=== PATIENT | female | born 1985 | race Caucasian/White ===

== ENCOUNTER 2018-05-01 17:33 | Outpatient (REF) | payer OTHER, SELFPAY ==
--- NOTE | 2018-05-01 16:30 | PAPFT_PTH ---
PATIENT: Real Craven LOC: [facility] U#:[id number] AGE/SX: 33/F ROOM: RE05/01/[address]: Barbra Bragg MD : 1985 BED: DIS: 05/01/2018 SPEC #: [id number] RECD: 05/01/18 18:04 STATUS: ROLANDA RELex #: [id number] MARY: 05/01/18 16:[address]: Barbra Bragg DEPT: [facility] Cytology RECD BY: Urmila Rahman ENTERED: 05/01/18 18:05 SP TYPE: PAPFT OTHR DR: Shahida Arshad APRN Tissues: 1 - CX/ENDOCX FOR PAP SMEARS Procedures: PAP THIN PREP/UVM Screening HPV DNA PROBE Comments: [id number]
== END 2018-05-01 17:53 ==
LOC: LBN 17:33
PROVIDERS: PCP Nurse Practitioner; Visit Provider Obstetrics & Gynecology
DX: Z12.4 Encounter for screening for malignant neoplasm of cervix (principal); Z11.51 Encounter for screening for human papillomavirus (HPV)
CPT/HCPCS: 88142; 87624

== ENCOUNTER 2018-07-29 16:27 | Outpatient (CLI) | payer OTHER, SELFPAY ==
[2018-07-29 16:57] LABS: Abs Immature Grans 0.04 k/cumm (0.0-0.09); Absolute Basophil Count 0.02 k/cumm (0.0-0.2); Absolute Eosinophil Count 0.07 k/cumm (0.0-0.7); Absolute Lymphocyte Count 2.01 k/cumm (1.2-3.4); Absolute Monocyte Count 0.54 k/cumm (0.11-0.7); Absolute Neutrophil Count 6.78 k/cumm (1.2-6.7); Basophils % 0.2; Eosinophils % 0.7; HCT 34.7 % (36.0-46.0); HGB 12.2 g/dL (12.0-15.5); Immature Grans % 0.4; Lymphocytes % 21.2; Mean Corp. HGB Concentration 35.2 g/dL (32.0-36.0); Mean Corpuscular Hemoglobin 30.9 pg (27.0-33.0); Mean Corpuscular Volume 87.8 fL (80-95); Monocytes % 5.7; Neutrophils % 71.8; Platelet Count 224 x1000/uL (130-400); RBC 3.95 m/cumm (4.00-5.20); RBC Distribution Width 12.8 % (11.7-14.6); White Blood Cell Count 9.46 k/cumm (4.4-10.8)
[2018-07-31 10:01] LABS: Hepatitis B Surface Ag Negative (NEGAT)
[2018-07-31 10:13] LABS: HIV-1/2 Ag & Ab Screen Negative (NEGAT)
[2018-07-31 12:13] LABS: Rubella IgG Ab (UVM) Positive; Syphilis Serology (RPR) Negative (Negative); Varicella IgG Antibody Positive
[2018-07-31 15:23] LABS: Hepatitis C Ab w Rflx HCV PCR Negative (NEGAT)
== END 2018-07-29 16:47 ==
PROVIDERS: PCP Nurse Practitioner; Visit Provider Advanced Practice Midwife
DX: Z34.91 Encounter for supervision of normal pregnancy, unspecified, first trimester (principal); Z11.3 Encounter for screening for infections with a predominantly sexual mode of transmission; Z11.4 Encounter for screening for human immunodeficiency virus [HIV]; Z01.84 Encounter for antibody response examination; Z11.59 Encounter for screening for other viral diseases
CPT/HCPCS: 36415; 80055; 86787; 86803; 86850; 86900; 86901; 87340; 87389; 86592; 86762

== ENCOUNTER 2018-07-29 16:45 | Outpatient (REF) | payer OTHER, SELFPAY ==
[2018-07-29 17:59] LABS: *AMPHETAMINES SCREEN URINE Negative (Negative); *BARBITURATES SCREEN URINE Negative (Negative); *BENZODIAZEPINES SCREEN URINE Negative (Negative); Cannabinoids THC Negative (Negative); Cocaine Screen,Urine Negative (Negative); METHADONE URINE SCREEN Negative (Negative); OPIATES URINE SCREEN Negative (Negative)
[2018-07-29 18:06] LABS: Tricyclic Antidepressants Negative (Negative)
[2018-07-31 13:02] LABS: Chlamydia Result Negative; GC Result Negative; Specimen Description CERVIX
[2018-08-04 15:25] LABS: Buprenorphine Negative; Norbuprenorphine Negative
== END 2018-07-29 17:05 ==
LOC: LBN 16:45
PROVIDERS: PCP Nurse Practitioner; Visit Provider Advanced Practice Midwife
DX: Z34.91 Encounter for supervision of normal pregnancy, unspecified, first trimester (principal); Z11.3 Encounter for screening for infections with a predominantly sexual mode of transmission
CPT/HCPCS: 80307; 87491; 87591; 87086

== ENCOUNTER 2018-08-19 14:17 | Outpatient (CLI) | payer OTHER, SELFPAY ==
[2018-08-19 14:29] LABS: Kit/Specimen SENT
== END 2018-08-19 14:37 ==
PROVIDERS: PCP Nurse Practitioner; Visit Provider Advanced Practice Midwife
DX: Z34.91 Encounter for supervision of normal pregnancy, unspecified, first trimester (principal)
CPT/HCPCS: 36415

== ENCOUNTER 2018-09-23 14:20 | Outpatient (CLI) | payer OTHER, SELFPAY ==
[2018-09-25 15:38] LABS: AFP 75.4 ng/mL; Cigarette smoking status non-smoker; GA used in risk estimate Scan estimate; IVF Pregnancy No; Initial or repeat testing Initial testing; Insulin dependent diabetes No; Maternal Weight 130 lbs; Number of Fetuses 1; Physician Phone Number 802-748-7300; Prev Pregnancy w/NTD No; RECOMMENDED FOLLOW UP None.; Results Summary Normal risk
== END 2018-09-23 14:40 ==
PROVIDERS: PCP Internal Medicine; Visit Provider Advanced Practice Midwife
DX: Z34.91 Encounter for supervision of normal pregnancy, unspecified, first trimester (principal); Z36.89 Encounter for other specified antenatal screening
CPT/HCPCS: 36415; 82105

== ENCOUNTER 2018-10-14 01:06 | Outpatient (CLI) | payer OTHER, SELFPAY ==
--- NOTE | 2018-10-14 14:46 | DI.US_ITS ---
Many abnormalities cannot be diagnosed. A normal exam does not exclude a congenital anomaly. Radiology No. LMP: 06/07/18 Exam Date: 10/14/18 [facility] wks days on EDC ([facility]) 03/14/19 Confirmed: HISTORY: SURVEY, Z34.90 PREDICTED GESTATIONAL AGE NUMBER 18.3 weeks with a range of 17.3 week to 19.3 weeks. 1 Determined by_X__1STUS___LMP___HISTORY Info. pertaining to fetus # PLACENTA PRESENTATION Grade 0-1 Cephalic___ Anterior___Posterior__X_ Breech____ Right Left__X Transverse(head right___ Fundal___Low-lying___Previa___ Transverse(head left___ Varying__X____ BIOMETRY AMNIOTIC FLUID BPD: 45 mm 19.5 weeks Normal HC: 162 mm 19 weeks AC: 132 mm 18.5 weeks FL: 28 mm 18.5 weeks AMNIOTIC FLUID INDEX >26 WK CRL: mm weeks Cisterna Magna: 3.5 mm CI: 86 RUQ: LUQ Cerebellum: 1.80 cm EFW: 256 grams 66 th Percentile RLQ: LLQ Total: cms Composite AGE= 19 wks EDC by US____03/10/19 BIOPHYSICAL PROFILE ANATOMY IDENTIFIED SCORE 0/2 Heart: 4-Chamber_X__Rate:BPM___145__ LVOT: X__ RVOT:___X Amniotic Fluid(>2cms)____ Stomach:____X___ Kidneys:____X___ Respirations (>30 secs) Bladder: X__ Post. Fossa: X____ Body Flex/Extension 3 vessel cord:____X___Ventricles: X____ cord insertion:___X__ Lips:__X__ Extremity Flex/Extension spinal morphology: X___Nose:X Total Score= Palate:__X NS=not seen Please see the OB ultrasound for specific details.
== END 2018-10-14 01:26 ==
PROVIDERS: PCP Internal Medicine; Visit Provider Advanced Practice Midwife
DX: Z34.92 Encounter for supervision of normal pregnancy, unspecified, second trimester (principal)
CPT/HCPCS: 76805

== ENCOUNTER 2018-10-23 16:42 | Outpatient (REF) | payer OTHER, SELFPAY | END 2018-10-23 17:02 | LOC: LBN 16:42 | PROVIDERS: PCP Internal Medicine; Visit Provider Advanced Practice Midwife | DX: N89.8 Other specified noninflammatory disorders of vagina (principal) | CPT/HCPCS: 87480; 87510; 87660 ==

== ENCOUNTER 2018-10-26 11:26 | Outpatient (CLI) | payer OTHER, SELFPAY ==
--- NOTE | 2018-10-26 11:15 | DI.US_ITS ---
SYMPTOMS/DIAGNOSIS: CERVICAL LENGTH CHECK, INTERMITTENT CONTRACTIONS OVER THE WEEKEND LIMITED OBSTETRICAL ULTRASOUND: Many abnormalities cannot be diagnosed. A normal exam does not exclude a congenital anomaly. Radiology No. [id number] LMP: Exam Date: 10/26/18 [facility] wks days on EDC ([facility]) Confirmed: HISTORY: PREDICTED GESTATIONAL AGE NUMBER 20+1 weeks with a range of week to weeks. 1 Determined by___1STUS___LMP___HISTORY PLACENTA PRESENTATION Grade I Cephalic_X__ Anterior___Posterior_X__ Breech____ Right Left Transverse(head right___ Fundal___Low-lying___Previa___ Transverse(head left___ Varying BIOMETRY AMNIOTIC FLUID BPD: mm weeks Normal HC: mm weeks Oligo Polyhydramnios AC: mm weeks FL: mm weeks AMNIOTIC FLUID INDEX >26 WK CRL: mm weeks Cisterna Magna: mm CI: RUQ: LUQ Cerebellum: cm EFW: grams Percentile RLQ: LLQ Total: cms Composite AGE= wks EDC by US BIOPHYSICAL PROFILE ANATOMY IDENTIFIED SCORE 0/2 Heart: 4-Chamber___Rate:BPM 158 LVOT: RVOT: Amniotic Fluid(>2cms)____ Stomach: Kidneys: Respirations (>30 secs) Bladder: Post. Fossa: Body Flex/Extension 3 vessel cord: Ventricles: cord insertion: Lips:____ Extremity Flex/Extension spinal morphology: Nose: Total Score= Palate: NS=not seen COMMENTS: Sonographic evaluation of the cervical length was performed. There is a single intrauterine gestation. The fetus is in the cephalic presentation. heart rate is 158 beats per minute. anatomic evaluation and dating were not performed at this examination. The placenta is posterior without evidence of previa. The cervical length measures 4.3-4.4 cm. IMPRESSION: Cervical length of 4.3-4.4 cm.
== END 2018-10-26 11:46 ==
PROVIDERS: PCP Internal Medicine; Visit Provider Advanced Practice Midwife
DX: O47.02 False labor before 37 completed weeks of gestation, second trimester (principal); Z36.89 Encounter for other specified antenatal screening
CPT/HCPCS: 76815

== ENCOUNTER 2018-11-06 15:56 | Outpatient (REF) | payer OTHER, SELFPAY | END 2018-11-06 16:16 | LOC: LBN 15:56 | PROVIDERS: PCP Internal Medicine; Visit Provider Advanced Practice Midwife | DX: R10.9 Unspecified abdominal pain (principal) | CPT/HCPCS: 87086 ==

== ENCOUNTER 2018-12-02 18:55 | Outpatient (REF) | payer OTHER, SELFPAY | END 2018-12-02 19:15 | LOC: LBN 18:55 | PROVIDERS: Visit Provider Advanced Practice Midwife | DX: Z34.92 Encounter for supervision of normal pregnancy, unspecified, second trimester (principal) | CPT/HCPCS: 87086 ==

== ENCOUNTER 2018-12-03 15:01 | Outpatient (REF) | payer OTHER, SELFPAY ==
[2018-12-03 15:53] LABS: Fetal Fibronectin Negative (Negative)
== END 2018-12-03 15:21 ==
LOC: LBN 15:01
PROVIDERS: Visit Provider Advanced Practice Midwife
DX: Z34.92 Encounter for supervision of normal pregnancy, unspecified, second trimester (principal); Z36.89 Encounter for other specified antenatal screening
CPT/HCPCS: 82731

== ENCOUNTER 2018-12-04 07:55 | Outpatient (CLI) | payer OTHER, SELFPAY ==
--- NOTE | 2018-12-04 08:53 | DI.US_ITS ---
Predicted Gestational Age: Indication/History: INCREASED UTERINE IRRITABILITY 25.5 Wks Range: to Prior US done on: 10/26/18 Determined by: First US LMP History EDC by prior US: For multiple gestations: Baby PLACENTA: Grade: I Location: Anterior Posterior PRESENTATION: RT LT LOW LYING PREVIA Cephalic X Trans (Head RT LT ) Varied Breech BIOMETRY: Anatomy Identified: BPD: mm wks 4 chamber Heart Heart Rate 139 BPM HC: mm wks LVOT Post Fossa AC: mm wks RVOT Ventricles FL: mm wks Stomach Nose Bladder Lips Cisterna Magna: mm CI: Kidneys Palate Cerebellum: mm 3 vessel cord Spine EFW: grms % Cord Insertion NS= not seen Composite Age (US) wks Many abnormalities cannot be diagnosed. A normal exam does not exclude congenital abnormality. EDC by US Amniotic Fluid Index: Normal COMMENTS: RUQ: LUQ: RLQ: LLQ: Total: cm Biophysical Profile: Score 0/2 ZACH (>2cm) Respirations (>30 sec) Body flexion/extension Extremity flexion/extension TOTAL SCORE Comparison is made with 10/26/18. The fetus is in cephalic position. The placenta is posterior. The cervical length measures 4.6 cm. The internal os is closed. IMPRESSION: Cervical length measures 4.6 cm.
== END 2018-12-04 08:15 ==
PROVIDERS: Visit Provider Advanced Practice Midwife
DX: Z34.92 Encounter for supervision of normal pregnancy, unspecified, second trimester (principal); O26.892 Other specified pregnancy related conditions, second trimester
CPT/HCPCS: 76815

== ENCOUNTER 2018-12-23 08:09 | Outpatient (CLI) | payer OTHER, SELFPAY ==
[2018-12-23 15:09] LABS: HCT 34.3 % (36.0-46.0); HGB 11.8 g/dL (12.0-15.5); Mean Corp. HGB Concentration 34.4 g/dL (32.0-36.0); Mean Corpuscular Hemoglobin 30.6 pg (27.0-33.0); Mean Corpuscular Volume 88.9 fL (80-95); Mean Platelet Volume 8.9 fL (8.0-11.0); Platelet Count 212 x1000/uL (130-400); RBC 3.86 m/cumm (4.00-5.20); RBC Distribution Width 13.2 % (11.7-14.6)
[2018-12-23 15:12] LABS: Glucose,1 Hr (Glucola) 150 mg/dL (80-140)
== END 2018-12-23 08:29 ==
PROVIDERS: Visit Provider Advanced Practice Midwife
DX: Z34.92 Encounter for supervision of normal pregnancy, unspecified, second trimester (principal)
CPT/HCPCS: 36415; 82950; 85027

== ENCOUNTER 2018-12-31 06:43 | Outpatient (CLI) | payer OTHER, SELFPAY ==
[2018-12-31 09:02] LABS: Glucose 1 Hour 106 mg/dL
[2018-12-31 11:12] LABS: Glucose 3 Hour 80 mg/dL
== END 2018-12-31 07:03 ==
PROVIDERS: PCP Internal Medicine; Visit Provider Advanced Practice Midwife
DX: R73.09 Other abnormal glucose (principal)
CPT/HCPCS: 36410; 82951

== ENCOUNTER 2019-02-17 17:23 | Outpatient (REF) | payer OTHER, SELFPAY ==
[2019-02-17 17:53] LABS: *AMPHETAMINES SCREEN URINE Negative (Negative); *BARBITURATES SCREEN URINE Negative (Negative); *BENZODIAZEPINES SCREEN URINE Negative (Negative); Cannabinoids THC Negative (Negative); Cocaine Screen,Urine Negative (Negative); METHADONE URINE SCREEN Negative (Negative); OPIATES URINE SCREEN Negative (Negative)
[2019-02-17 18:17] LABS: Tricyclic Antidepressants Negative (Negative)
[2019-02-26 14:10] LABS: Buprenorphine Negative
== END 2019-02-17 17:43 ==
LOC: LBN 17:23
PROVIDERS: PCP Internal Medicine; Visit Provider Advanced Practice Midwife
DX: Z34.93 Encounter for supervision of normal pregnancy, unspecified, third trimester (principal); Z36.85 Encounter for antenatal screening for Streptococcus B
CPT/HCPCS: 80307; 87081

== ENCOUNTER 2019-02-25 07:32 | Outpatient (CLI) | payer OTHER, SELFPAY ==
--- NOTE | 2019-02-25 08:48 | DI.US_ITS ---
SYMPTOM/DIAGNOSIS: SIZE<DATES AT 37 WM Z34,90 OB ULTRASOUND: 02/25/19 OB ultrasound was performed utilizing 3rd trimester protocol. biometry is consistent with gestational age of 37 weeks 1 day and EDC of 03/17/19 Estimated weight is 3038 grams which is at the 39th percentile for predicted gestational age. The placenta is posterior with no evidence of placenta previa. Amniotic fluid index is 15 and visually there is a normal quantity of amniotic fluid. Fetus is in cephalic presentation. cardiac activity observed at a rate of 147 BPM. Predicted Gestational Age: Indication/History: 37 +4 Wks Range: 36 +4 to 38 +4 Prior US done on: Determined by: First US XX LMP History EDC by prior US: 03/14/19 For multiple gestations: Baby PLACENTA: Grade: II Location: Anterior Posterior XX PRESENTATION: XX LT LOW LYING PREVIA Cephalic XX Trans (Head RT LT ) Varied Breech BIOMETRY: Anatomy Identified: BPD: 92 mm 37 +3 wks 4 chamber Heart Heart Rate 147 BPM HC: 331 mm 37 +4 wks LVOT Post Fossa AC: 325 mm 36 +3 wks RVOT Ventricles FL: 72 mm 37 wks Stomach Nose Bladder Lips Cisterna Magna: mm CI: 85 Kidneys Palate Cerebellum: mm 3 vessel cord Spine EFW: 3038 grms 39 % Cord Insertion NS= not seen Composite Age (US) 37 +1 wks Many abnormalities cannot be diagnosed. A normal exam does not exclude congenital abnormality. EDC by US 03/17/19 Amniotic Fluid Index: Normal COMMENTS: RUQ: 6.5 LUQ: 2.9 RLQ: 3.5 LLQ: 2.2 Total: 15.2 cm Biophysical Profile: Score 0/2 ZACH (>2cm) Respirations (>30 sec) Body flexion/extension Extremity flexion/extension TOTAL SCORE
== END 2019-02-25 07:52 ==
PROVIDERS: PCP Internal Medicine; Visit Provider Advanced Practice Midwife
DX: O26.843 Uterine size-date discrepancy, third trimester (principal)
CPT/HCPCS: 76816

== ENCOUNTER 2019-03-19 14:43 | Outpatient (CLI) | payer OTHER, SELFPAY | END 2019-03-19 15:03 | PROVIDERS: PCP Internal Medicine; Visit Provider Advanced Practice Midwife | DX: O48.0 Post-term pregnancy (principal) | CPT/HCPCS: 59025 ==

== ENCOUNTER 2019-03-22 07:56 | Outpatient (CLI) | payer OTHER, SELFPAY ==
[2019-03-22 12:33] LABS: HCT 34.4 % (36.0-46.0); HGB 11.6 g/dL (12.0-15.5); Mean Corp. HGB Concentration 33.7 g/dL (32.0-36.0); Mean Corpuscular Hemoglobin 28.7 pg (27.0-33.0); Mean Corpuscular Volume 85.1 fL (80-95); Mean Platelet Volume 9.7 fL (8.0-11.0); Platelet Count 224 x1000/uL (130-400); RBC 4.04 m/cumm (4.00-5.20); RBC Distribution Width 12.8 % (11.7-14.6); White Blood Cell Count 8.85 k/cumm (4.4-10.8)
[2019-03-22 12:48] LABS: COMMENT (LAB VIEW ONLY) 14.07 mg/dL; PROTEIN < 6.0 mg/dL
[2019-03-22 13:35] LABS: ALT 22 U/L (14-59); AST 17 U/L (15-37); Albumin 2.7 g/dL (3.4-5.0); Alkaline Phosphatase 162 U/L (46-116); Anion Gap 9.7 mmol/L (3-11); BUN 11 mg/dL (7-18); Bilirubin, Total 0.6 mg/dL (0.2-1.0); CO2 23.3 mmol/L (21.0-32.0); CREATININE 0.61 mg/dL (0.55-1.02); Calcium 8.1 mg/dL (8.5-10.1); Chloride 106 mmol/L (98-107); Glucose 76 mg/dL (70-100); Potassium 4.2 mmol/L (3.5-5.1); Sodium 139 mmol/L (136-145); Total Protein 5.9 g/dL (6.4-8.2); Uric Acid 4.5 mg/dL (2.6-6.0)
== END 2019-03-22 08:16 ==
PROVIDERS: PCP Internal Medicine; Visit Provider Advanced Practice Midwife
DX: O48.0 Post-term pregnancy; O26.893 Other specified pregnancy related conditions, third trimester; R03.0 Elevated blood-pressure reading, without diagnosis of hypertension; Z3A.41 41 weeks gestation of pregnancy
CPT/HCPCS: 36415; 80053; 85027; 59025; 82565; 84156; 84550

== ENCOUNTER 2019-03-24 16:51 | Inpatient (IN) | payer OTHER, SELFPAY ==
[2019-03-24 17:35] LABS: HCT 33.3 % (36.0-46.0); HGB 11.1 g/dL (12.0-15.5); Mean Corp. HGB Concentration 33.3 g/dL (32.0-36.0); Mean Corpuscular Hemoglobin 28.2 pg (27.0-33.0); Mean Corpuscular Volume 84.7 fL (80-95); Mean Platelet Volume 9.7 fL (8.0-11.0); Platelet Count 218 x1000/uL (130-400); RBC 3.93 m/cumm (4.00-5.20); RBC Distribution Width 12.7 % (11.7-14.6); White Blood Cell Count 8.71 k/cumm (4.4-10.8)
[2019-03-24] MEDS: miSOPROStol 25 MCG TAB PO ×3 (18:33→22:14)
[2019-03-25] MEDS: miSOPROStol 50 MCG TAB PO (08:02)
[2019-03-25] MEDS: Normal Saline Flush 10 ML SYR IVP ×2 (12:38→13:17)
[2019-03-25] MEDS: Lactated Ringers 1,000 ML 80 ML IV (13:15)
[2019-03-25] MEDS: Ondansetron 4 MG/2 ML VIAL IVP (17:01)
[2019-03-25] MEDS: FentaNYL/ROPIvacaine 2 mcg/ml and 0.1% 200 ML CADD Cassette EP ×2 (17:01→17:30)
[2019-03-25] MEDS: Lactated Ringers 1,000 ML 125 ML IV (17:46)
[2019-03-25] MEDS: Acetaminophen 325 MG TAB 650 MG PO (22:27)
[2019-03-25] MEDS: Ibuprofen 600 MG TAB PO (22:27)
[2019-03-25] MEDS: Hamamelis Leaf/Glycerin 100 EACH BOX PR (22:29)
[2019-03-26] MEDS: Ibuprofen 600 MG TAB PO ×3 (04:15→18:16)
[2019-03-26] MEDS: Acetaminophen 325 MG TAB 650 MG PO ×3 (04:15→18:15)
[2019-03-26 07:12] LABS: HCT 29.5 % (36.0-46.0); HGB 9.8 g/dL (12.0-15.5); Mean Corp. HGB Concentration 33.2 g/dL (32.0-36.0); Mean Corpuscular Hemoglobin 28.5 pg (27.0-33.0); Mean Corpuscular Volume 85.8 fL (80-95); Mean Platelet Volume 9.7 fL (8.0-11.0); Platelet Count 212 x1000/uL (130-400); RBC 3.44 m/cumm (4.00-5.20); RBC Distribution Width 12.8 % (11.7-14.6); White Blood Cell Count 15.57 k/cumm (4.4-10.8)
[2019-03-26] MEDS: Ondansetron 4 MG/2 ML VIAL 8 MG IVP (07:56)
[2019-03-26] MEDS: Normal Saline Flush 10 ML SYR IVP ×2 (07:57→19:08)
[2019-03-26] MEDS: Docusate Sodium 100 MG CAP PO (11:48)
[2019-03-26] MEDS: Ondansetron 4 MG/2 ML VIAL IVP (19:08)
[2019-03-27 08:21] LABS: Abs Immature Grans 0.04 k/cumm (0.0-0.09); Absolute Basophil Count 0.01 k/cumm (0.0-0.2); Absolute Eosinophil Count 0.06 k/cumm (0.0-0.7); Absolute Monocyte Count 0.39 k/cumm (0.11-0.7); Absolute Neutrophil Count 10.78 k/cumm (1.2-6.7); Basophils % 0.1; Eosinophils % 0.5; HCT 28.1 % (36.0-46.0); HGB 9.2 g/dL (12.0-15.5); Immature Grans % 0.3; Lymphocytes % 8.4; Mean Corp. HGB Concentration 32.7 g/dL (32.0-36.0); Mean Corpuscular Hemoglobin 28.4 pg (27.0-33.0); Mean Corpuscular Volume 86.7 fL (80-95); Mean Platelet Volume 8.6 fL (8.0-11.0); Monocytes % 3.2; Neutrophils % 87.5; Platelet Count 207 x1000/uL (130-400); RBC 3.24 m/cumm (4.00-5.20); White Blood Cell Count 12.32 k/cumm (4.4-10.8)
[2019-03-27 08:23] LABS: Absolute Lymphocyte Count 1.03 k/cumm (1.2-3.4)
[2019-03-27] MEDS: Acetaminophen 325 MG TAB 650 MG PO ×2 (10:15→15:00)
[2019-03-27] MEDS: IRON SUCROSE COMPLEX 200 MG in Normal Saline 100 ML 110 MG IVPB (10:40)
[2019-03-27] MEDS: Ibuprofen 600 MG TAB PO (15:00)
== END 2019-03-27 15:00 | disposition home or self-care (01) | DRG 807 ==
PROVIDERS: Advanced Practice Midwife; Admitting Provider Advanced Practice Midwife; PCP Internal Medicine; Visit Provider Advanced Practice Midwife
DX: O48.0 Post-term pregnancy (principal); Z37.0 Single live birth; Z3A.41 41 weeks gestation of pregnancy; O77.0 Labor and delivery complicated by meconium in amniotic fluid; O76 Abnormality in fetal heart rate and rhythm complicating labor and delivery; O90.81 Anemia of the puerperium; D64.9 Anemia, unspecified; O99.344 Other mental disorders complicating childbirth; F41.1 Generalized anxiety disorder; O90.89 Other complications of the puerperium, not elsewhere classified; R11.0 Nausea
CPT/HCPCS: 36415; 85027; 86850; 86900; 86901; 85025; J1756; J2405; J3490

== ENCOUNTER 2019-05-12 16:55 | Outpatient (REF) | payer OTHER, SELFPAY ==
[2019-05-13 12:52] LABS: Chlamydia Result Negative (Negative); GC Result Negative (Negative); Specimen Description CERVIX
== END 2019-05-12 17:15 ==
LOC: LBN 16:55
PROVIDERS: PCP Internal Medicine; Visit Provider Advanced Practice Midwife
DX: Z39.2 Encounter for routine postpartum follow-up (principal); Z11.3 Encounter for screening for infections with a predominantly sexual mode of transmission
CPT/HCPCS: 87491; 87591

== ENCOUNTER 2019-08-12 22:28 | Outpatient (REF) | payer OTHER, SELFPAY ==
[2019-08-12 18:47] LABS: Abs Immature Grans 0.03 k/cumm (0.0-0.09); Absolute Basophil Count 0.02 k/cumm (0.0-0.2); Absolute Eosinophil Count 0.08 k/cumm (0.0-0.7); Absolute Lymphocyte Count 1.38 k/cumm (1.2-3.4); Absolute Monocyte Count 0.68 k/cumm (0.11-0.7); Absolute Neutrophil Count 13.37 k/cumm (1.2-6.7); Basophils % 0.1; Eosinophils % 0.5; HCT 40.9 % (36.0-46.0); HGB 14.2 g/dL (12.0-15.5); Immature Grans % 0.2 %; Lymphocytes % 8.9; Mean Corp. HGB Concentration 34.7 g/dL (32.0-36.0); Mean Corpuscular Hemoglobin 29.4 pg (27.0-33.0); Mean Corpuscular Volume 84.7 fL (80-95); Mean Platelet Volume 9.3 fL (8.0-11.0); Monocytes % 4.4; Neutrophils % 85.9; Platelet Count 278 x1000/uL (130-400); RBC 4.83 m/cumm (4.00-5.20); RBC Distribution Width 13.7 % (11.7-14.6); White Blood Cell Count 15.56 k/cumm (4.4-10.8)
[2019-08-12 19:02] LABS: TSH (W/Ref FT4) 2.01 uIU/mL (0.36-3.74)
[2019-08-12 19:14] LABS: Mono Screening Negative (Negative)
== END 2019-08-12 22:48 ==
LOC: LBN 22:28
PROVIDERS: PCP Internal Medicine; Visit Provider Family Medicine
DX: R53.83 Other fatigue (principal)
CPT/HCPCS: 87449; 84443; 85025; 86308

== ENCOUNTER 2019-09-14 19:30 | Outpatient (REF) | payer OTHER, SELFPAY ==
[2019-09-14 18:47] LABS: Abs Immature Grans 0.01 k/cumm (0.0-0.09); Absolute Basophil Count 0.01 k/cumm (0.0-0.2); Absolute Eosinophil Count 0.11 k/cumm (0.0-0.7); Absolute Lymphocyte Count 1.47 k/cumm (1.2-3.4); Absolute Monocyte Count 0.49 k/cumm (0.11-0.7); Absolute Neutrophil Count 3.03 k/cumm (1.2-6.7); Basophils % 0.2; Eosinophils % 2.1; HCT 38.9 % (36.0-46.0); HGB 13.7 g/dL (12.0-15.5); Immature Grans % 0.2 %; Lymphocytes % 28.7; Mean Corp. HGB Concentration 35.2 g/dL (32.0-36.0); Mean Corpuscular Hemoglobin 30.2 pg (27.0-33.0); Mean Corpuscular Volume 85.9 fL (80-95); Mean Platelet Volume 8.8 fL (8.0-11.0); Monocytes % 9.6; Neutrophils % 59.2; Platelet Count 250 x1000/uL (130-400); RBC 4.53 m/cumm (4.00-5.20); RBC Distribution Width 13.3 % (11.7-14.6); White Blood Cell Count 5.12 k/cumm (4.4-10.8)
[2019-09-14 19:02] LABS: Iron 46 ug/dL (50-170); Total Iron Binding Capacity 302 ug/dL (250-450); Transferrin Sat 15 % (15-50)
[2019-09-14 19:25] LABS: ESR 8 mm/hr (0-20)
[2019-09-14 19:29] LABS: ALT 28 U/L (14-59); AST 16 U/L (15-37); Albumin 3.6 g/dL (3.4-5.0); Alkaline Phosphatase 85 U/L (46-116); Anion Gap 8.8 mmol/L (3-11); BUN 17 mg/dL (7-18); Bilirubin, Total 0.9 mg/dL (0.2-1.0); CO2 27.2 mmol/L (21.0-32.0); CREATININE 0.72 mg/dL (0.55-1.02); Calcium 8.2 mg/dL (8.5-10.1); Chloride 104 mmol/L (98-107); Glucose 85 mg/dL (74-106); Potassium 4.1 mmol/L (3.5-5.1); Sodium 140 mmol/L (136-145); Total Protein 6.4 g/dL (6.4-8.2); Vitamin B12 675 pg/mL (193-986)
== END 2019-09-14 19:50 ==
LOC: NCHCN 19:30
PROVIDERS: PCP Internal Medicine; Visit Provider Family Medicine
DX: R53.83 Other fatigue (principal)
CPT/HCPCS: 80053; 85652; 82607; 83540; 83550; 84443; 85025

== ENCOUNTER 2020-07-27 08:56 | Outpatient (REF) | payer OTHER, SELFPAY | END 2020-07-27 09:16 | LOC: LBN 08:56 | PROVIDERS: PCP Internal Medicine; Visit Provider Advanced Practice Midwife | DX: N89.8 Other specified noninflammatory disorders of vagina (principal) | CPT/HCPCS: 87480; 87510; 87660 ==

== ENCOUNTER 2020-11-24 00:35 | Outpatient (RCR) | payer OTHER, SELFPAY ==
--- NOTE | 2020-11-24 08:00 | HOLTER_ITS ---
APPROVED REPORT Conclusion This is a 24-hour monitor ordered for indication of dyspnea. Patient was in normal sinus rhythm for the majority of the recording with an average heart rate of 84 bpm. There are no episodes of ventricular tachycardia nor any episodes of supraventricular tachycardia. There were no PVCs and 2 total PACs. There were no episodes of atrial fibrillation, no pauses greater than 3 seconds and no evidence of hi gh degree heart block. There were 4 patient triggered events associated with nausea, dizziness and palpitations none of whic h were associated with arrhythmia.
== END 2020-12-18 23:59 | disposition home or self-care (01) ==
LOC: RT 00:35
PROVIDERS: PCP Internal Medicine; Visit Provider Family Medicine
DX: R06.89 Other abnormalities of breathing (principal); I49.1 Atrial premature depolarization
CPT/HCPCS: 93225; 93226

== ENCOUNTER 2021-01-02 15:03 | Outpatient (REF) | payer OTHER, SELFPAY | END 2021-01-02 15:04 | disposition home or self-care (01) | LOC: LBN 15:03 | PROVIDERS: PCP Internal Medicine; Visit Provider Nurse Practitioner Family | DX: R35.0 Frequency of micturition (principal) | CPT/HCPCS: 87086 ==

== ENCOUNTER 2021-05-14 09:44 | Outpatient (CLI) | payer OTHER, SELFPAY ==
[2021-05-14 12:27] LABS: HCG Quant, Pregnancy 364 mIU/mL (1-3)
== END 2021-05-14 09:45 | disposition home or self-care (01) ==
LOC: LBO 09:44
PROVIDERS: PCP Internal Medicine; Visit Provider Obstetrics & Gynecology Gynecology
DX: O20.0 Threatened abortion (principal)
CPT/HCPCS: 36415; 84702

== ENCOUNTER 2021-05-16 04:38 | Outpatient (CLI) | payer OTHER, SELFPAY ==
[2021-05-16 11:43] LABS: HCG Quant, Pregnancy 276 mIU/mL (1-3)
== END 2021-05-16 04:39 | disposition home or self-care (01) ==
LOC: LBO 04:38
PROVIDERS: PCP Internal Medicine; Visit Provider Obstetrics & Gynecology
DX: O20.0 Threatened abortion (principal)
CPT/HCPCS: 36415; 84702

== ENCOUNTER 2021-05-23 03:29 | Outpatient (CLI) | payer OTHER, SELFPAY ==
[2021-05-23 08:42] LABS: HCG Quant, Pregnancy 96 mIU/mL (1-3)
== END 2021-05-23 03:30 | disposition home or self-care (01) ==
LOC: LBO 03:29
PROVIDERS: PCP Internal Medicine; Visit Provider Obstetrics & Gynecology
DX: O20.0 Threatened abortion (principal)
CPT/HCPCS: 36415; 84702

== ENCOUNTER 2021-05-30 02:31 | Outpatient (CLI) | payer OTHER, SELFPAY ==
[2021-05-30 09:57] LABS: HCG Quant, Pregnancy 5 mIU/mL (1-3)
== END 2021-05-30 02:32 | disposition home or self-care (01) ==
LOC: LBO 02:31
PROVIDERS: PCP Internal Medicine; Visit Provider Obstetrics & Gynecology
DX: O03.9 Complete or unspecified spontaneous abortion without complication (principal)
CPT/HCPCS: 36415; 84702

== ENCOUNTER 2021-09-25 14:36 | Outpatient (CLI) | payer OTHER, SELFPAY | END 2021-09-25 14:37 | disposition home or self-care (01) | LOC: LBO 14:38 | PROVIDERS: PCP Family Medicine; Visit Provider Nurse Practitioner Women's Health | DX: Z34.91 Encounter for supervision of normal pregnancy, unspecified, first trimester (principal); Z3A.01 Less than 8 weeks gestation of pregnancy | CPT/HCPCS: 36415; 84702 ==

== ENCOUNTER 2021-09-27 02:47 | Outpatient (CLI) | payer OTHER, SELFPAY | END 2021-09-27 02:48 | disposition home or self-care (01) | LOC: LBO 02:47 | PROVIDERS: PCP Family Medicine; Visit Provider Nurse Practitioner Women's Health | DX: Z34.91 Encounter for supervision of normal pregnancy, unspecified, first trimester (principal) | CPT/HCPCS: 36415; 84702 ==

== ENCOUNTER 2021-10-30 03:03 | Outpatient (CLI) | payer OTHER, SELFPAY ==
[2021-10-30 12:19] LABS: Kit/Specimen SENT
[2021-10-30 12:23] LABS: Abs Immature Grans 0.07 10^3/uL (0.0-0.06); Absolute Basophil Count 0.04 10^3/uL (0.0-0.2); Absolute Eosinophil Count 0.07 10^3/uL (0.0-0.7); Absolute Lymphocyte Count 1.43 10^3/uL (1.2-3.4); Absolute Neutrophil Count 7.35 10^3/uL (1.2-6.7); Basophils % 0.4; Eosinophils % 0.7; HCT 36.7 % (36.0-46.0); HGB 12.6 g/dL (11.2-15.7); Immature Grans % 0.7; Lymphocytes % 15.3; MCH 30.5 pg (27.0-33.0); MCHC 34.3 % (32.0-36.0); MCV 88.9 fL (80-95); MPV 8.7 fL (8.0-11.0); Monocytes % 4.3; Neutrophils % 78.6; Nucleated RBC 0 %; Platelet Count 215 10^3/uL (130-400); RBC 4.13 10^6/uL (3.93-5.22); RDW 13.2 % (11.7-14.6); RDW-SD 42.7 fL; WBC 9.36 10^3/uL (4.4-10.8)
[2021-10-31 09:36] LABS: Hepatitis B Surface Ag Negative (Negative)
[2021-10-31 10:16] LABS: HIV-1/2 Ag & Ab Screen Negative (Negative)
[2021-10-31 10:35] LABS: Hepatitis C Ab w Rflx HCV PCR Negative (Negative)
[2021-10-31 11:30] LABS: Rubella IgG Ab (UVM) Positive (See Note); Varicella IgG Antibody Positive (See Note)
[2021-10-31 18:38] LABS: Bile Acids, Total 7 mcmol/L (<=10)
[2021-10-31 21:50] LABS: Syphilis IgG w/Reflex Nonreactive (Nonreactive)
== END 2021-10-30 03:04 | disposition home or self-care (01) ==
LOC: LBO 03:03
PROVIDERS: Advanced Practice Midwife; PCP Family Medicine; Visit Provider Advanced Practice Midwife
DX: O09.521 Supervision of elderly multigravida, first trimester; O28.3 Abnormal ultrasonic finding on antenatal screening of mother; Z3A.00 Weeks of gestation of pregnancy not specified
CPT/HCPCS: 86787; 86803; 86850; 86900; 86901; 87340; 87389; 82239; 85025; 86762; 86780

== ENCOUNTER 2021-10-30 14:18 | Outpatient (REF) | payer OTHER, SELFPAY ==
[2021-10-30 18:06] LABS: *AMPHETAMINES SCREEN URINE Negative (Negative); *BARBITURATES SCREEN URINE Negative (Negative); *BENZODIAZEPINES SCREEN URINE Negative (Negative); Cannabinoids THC Negative (Negative); Cocaine Screen,Urine Negative (Negative); METHADONE URINE SCREEN Negative (Negative); OPIATES URINE SCREEN Negative (Negative)
[2021-10-30 18:07] LABS: Tricyclic Antidepressants Negative (Negative)
[2021-11-01 13:53] LABS: Chlamydia Result Negative (Negative); GC Result Negative (Negative)
[2021-11-06 14:05] LABS: Buprenorphine Negative ng/mL (Cutoff: 5.0); Norbuprenorphine Negative ng/mL (Cutoff: 2.5)
== END 2021-10-30 14:19 | disposition home or self-care (01) ==
LOC: LBN 14:18
PROVIDERS: PCP Family Medicine; Visit Provider Advanced Practice Midwife
DX: Z34.91 Encounter for supervision of normal pregnancy, unspecified, first trimester (principal); Z3A.11 11 weeks gestation of pregnancy
CPT/HCPCS: 80307; 87491; 87591; 87086; 87480; 87510; 87660

== ENCOUNTER 2021-11-01 14:22 | Outpatient (CLI) | payer OTHER, SELFPAY ==
[2021-11-01 14:08] LABS: ALT 25 U/L (14-59); AST 14 U/L (15-37); Albumin 3.7 g/dL (3.4-5.0); Alkaline Phosphatase 56 U/L (46-116); Anion Gap 10.2 mmol/L (3-11); BUN 13 mg/dL (7-18); CO2 25.8 mmol/L (21.0-32.0); CREATININE 0.5 mg/dL (0.55-1.02); Calcium 8.7 mg/dL (8.5-10.1); Chloride 104 mmol/L (98-107); Glucose 85 mg/dL (74-106); Potassium 3.8 mmol/L (3.5-5.1); Sodium 140 mmol/L (136-145); Total Protein 6.8 g/dL (6.4-8.2)
== END 2021-11-01 14:23 | disposition home or self-care (01) ==
LOC: LBO 14:23
PROVIDERS: PCP Family Medicine; Visit Provider Advanced Practice Midwife
DX: O99.711 Diseases of the skin and subcutaneous tissue complicating pregnancy, first trimester (principal); L29.8 Other pruritus; Z3A.11 11 weeks gestation of pregnancy
CPT/HCPCS: 80053

== ENCOUNTER 2021-11-14 04:57 | Outpatient (CLI) | payer OTHER, SELFPAY ==
[2021-11-16 15:48] LABS: CMV Ab, IgM Negative (Negative); Toxoplasma Ab, IgG Negative (Negative); Toxoplasma Ab, IgM Negative (Negative); Toxoplasma IgG Value <3 IU/mL
== END 2021-11-14 04:58 | disposition home or self-care (01) ==
LOC: LBO 04:57
PROVIDERS: PCP Family Medicine; Visit Provider Advanced Practice Midwife
DX: O99.511 Diseases of the respiratory system complicating pregnancy, first trimester (principal); J20.8 Acute bronchitis due to other specified organisms; Z3A.13 13 weeks gestation of pregnancy
CPT/HCPCS: 36415; 86644; 86645; 86777; 86778

== ENCOUNTER 2021-11-29 02:02 | Outpatient (CLI) | payer OTHER, SELFPAY ==
[2021-11-30 17:28] LABS: AFP 127.4 ng/mL; Calculated age at EDD 36 years; Cigarette smoking status non-Smoker; GA used in risk estimate Scan estimate; IVF Pregnancy No; Initial or repeat testing Initial testing; Insulin dependent diabetes No; Maternal Weight 128 lbs; Number of Fetuses 1; Physician Phone Number 802-748-7300; Prev Pregnancy w/NTD No
== END 2021-11-29 02:03 | disposition home or self-care (01) ==
LOC: LBO 02:02
PROVIDERS: PCP Family Medicine; Visit Provider Obstetrics & Gynecology
DX: Z34.92 Encounter for supervision of normal pregnancy, unspecified, second trimester (principal); Z3A.15 15 weeks gestation of pregnancy; Z36.89 Encounter for other specified antenatal screening
CPT/HCPCS: 36415; 82105

== ENCOUNTER → 2022-02-20 02:14 | Outpatient (CLI) | payer OTHER, SELFPAY ==
--- NOTE | 2022-02-20 07:45 | DI.US_ITS ---
Exam(s) US OB ZACH WEIGHT EXAM: US OB ZACH WEIGHT CLINICAL HISTORY: growth and ZACH,elevated afp, r77.2. TECHNIQUE: Transabdominal obstetrical ultrasound performed. COMPARISON: No exams were available for comparison FINDINGS:: Number of fetuses: One. position: Vertex. Placental location: Posterior. No evidence of previa. BIOMETRIC DATA: BPD: 70mm = 28+ 0 weeks HC: 245mm = 26+ 5 weeks AC: 244mm = 28+ 5 weeks FL: 51 mm = 27+ 1 weeks EFW: 1147 Gms = 64% Composite Age: 27+ 5 weeks EDC: 17 May 2022 Heart Rate: 138 BPM Amniotic fluid index: 11.5 cm. Amount of fluid is visually within normal limits. IMPRESSION: size and weight are within the expected range. DATA REPOSITORY:
== END ==
PROVIDERS: PCP Family Medicine; Visit Provider Obstetrics & Gynecology
DX: R77.2 Abnormality of alphafetoprotein (principal); Z34.92 Encounter for supervision of normal pregnancy, unspecified, second trimester
CPT/HCPCS: 76816

== ENCOUNTER 2022-02-20 02:59 | Outpatient (CLI) | payer OTHER, SELFPAY ==
[2022-02-20 08:48] LABS: Abs Immature Grans 0.18 10^3/uL (0.0-0.06); Absolute Basophil Count 0.03 10^3/uL (0.0-0.2); Absolute Eosinophil Count 0.05 10^3/uL (0.0-0.7); Absolute Lymphocyte Count 1.01 10^3/uL (1.2-3.4); Absolute Monocyte Count 0.36 10^3/uL (0.1-0.8); Absolute Neutrophil Count 8.12 10^3/uL (1.2-6.7); Basophils % 0.3; Eosinophils % 0.5; HCT 32.5 % (36.0-46.0); HGB 11.1 g/dL (11.2-15.7); Immature Grans % 1.8; Lymphocytes % 10.4; MCH 30.1 pg (27.0-33.0); MCHC 34.2 % (32.0-36.0); MCV 88 fL (80-95); MPV 8.6 fL (8.0-11.0); Monocytes % 3.7; Neutrophils % 83.3; Platelet Count 187 10^3/uL (130-400); RBC 3.69 10^6/uL (3.93-5.22); RDW 12.7 % (11.7-14.6); RDW-SD 40.7 fL; WBC 9.75 10^3/uL (4.4-10.8)
[2022-02-20 09:27] LABS: Glucose,1 Hr (Glucola) 97 mg/dL (80-140)
== END 2022-02-20 03:00 | disposition home or self-care (01) ==
PROVIDERS: PCP Family Medicine; Visit Provider Obstetrics & Gynecology
DX: Z34.92 Encounter for supervision of normal pregnancy, unspecified, second trimester (principal); N89.8 Other specified noninflammatory disorders of vagina
CPT/HCPCS: 36415; 82950; 85025; 87480; 87510; 87660

== ENCOUNTER → 2022-03-20 02:13 | Outpatient (CLI) | payer OTHER, SELFPAY ==
--- NOTE | 2022-03-20 07:00 | DI.US_ITS ---
Exam(s) US OB ZACH WEIGHT EXAM: US OB ZACH WEIGHT CLINICAL HISTORY: growth and ZACH, elevated AFP, R77.2. TECHNIQUE: Transabdominal obstetrical ultrasound was performed. COMPARISON: US US OB ZACH WEIGHT from 02/20/2022 FINDINGS: There is a single viable intrauterine gestation with cardiac activity identified-129 bpm The fetus is presently in cephalic position . Amniotic fluid: There is a normal amount of amniotic fluid with an ZACH of 14.85cm. Placental location: The placenta is posterior-right side,with no evidence of placenta previa.Grade [address] this at approximately 31 weeks and 4 days gestational age, implying MARLENA of 05/18/2022. BPD measures 31 weeks and 3 days HC measures 31 weeks and 3 days AC measures 30 weeks and 5 days FL measures 32 weeks and 4 days Estimated weight is 1753 gm-3 pounds, 14 ounces Fetus is at the 40th percentile on the Hadlock scale. IMPRESSION:: Viable 3rd trimester gestation, as described above. DATA REPOSITORY:
== END ==
PROVIDERS: PCP Family Medicine; Visit Provider Obstetrics & Gynecology
DX: O28.1 Abnormal biochemical finding on antenatal screening of mother; R77.2 Abnormality of alphafetoprotein; Z3A.31 31 weeks gestation of pregnancy
CPT/HCPCS: 76816

== ENCOUNTER → 2022-04-17 02:40 | Outpatient (CLI) | payer OTHER, SELFPAY ==
--- NOTE | 2022-04-17 07:00 | DI.US_ITS ---
Exam(s) US OB ZACH WEIGHT EXAM: US OB ZACH WEIGHT CLINICAL HISTORY: growth and ZACH,elevated afp, r77.2 TECHNIQUE: Ultrasound performed using standard protocol. COMPARISON: No exams were available for comparison FINDINGS: Ob ultrasound was performed utilizing 3rd trimester protocol. Fetus is in cephalic presentation. Pl acenta is posterior with no placenta previa. There is visually a normal quantity of amniotic fluid a nd the ZACH is 14. biometry is consistent with gestational age of 34 weeks 4 days and EDC of May 25. Estimated weight is 2430 grams which is at the 25th percentile for predicted gestational age. heart rate was 138 BPM IMPRESSION: DATA REPOSITORY:
== END ==
PROVIDERS: PCP Family Medicine; Visit Provider Obstetrics & Gynecology
DX: R77.2 Abnormality of alphafetoprotein (principal); O09.512 Supervision of elderly primigravida, second trimester
CPT/HCPCS: 76816

== ENCOUNTER 2022-04-23 12:35 | Outpatient (REF) | payer OTHER, SELFPAY ==
[2022-04-23 13:54] LABS: *AMPHETAMINES SCREEN URINE Negative (Negative); *BARBITURATES SCREEN URINE Negative (Negative); *BENZODIAZEPINES SCREEN URINE Negative (Negative); Cannabinoids THC Negative (Negative); Cocaine Screen,Urine Negative (Negative); METHADONE URINE SCREEN Negative (Negative); OPIATES URINE SCREEN Negative (Negative); Tricyclic Antidepressants Negative (Negative)
[2022-04-30 10:32] LABS: Buprenorphine Negative ng/mL (Cutoff: 5.0); Norbuprenorphine Negative ng/mL (Cutoff: 2.5)
== END 2022-04-23 12:36 | disposition home or self-care (01) ==
LOC: LBN 12:35
PROVIDERS: PCP Family Medicine; Visit Provider Obstetrics & Gynecology
DX: Z34.93 Encounter for supervision of normal pregnancy, unspecified, third trimester (principal); Z36.85 Encounter for antenatal screening for Streptococcus B; Z3A.36 36 weeks gestation of pregnancy
CPT/HCPCS: 80307; 80348; 87081

== ENCOUNTER 2022-05-01 06:25 | Outpatient (CLI) | payer OTHER, SELFPAY ==
[2022-05-01 08:45] VITALS: BP 107/69; PULSE 90; TEMP 36.6
[2022-05-01 08:47] VITALS: BP 107/69; PULSE 90
[2022-05-13 20:52] VITALS: BP 107/69; PULSE 90; TEMP 36.6
--- NOTE | 2022-05-13 20:52 | W.OBNST ---
Date of service: 05/13/22 Time of Service: 20:52 NST Evaluation Reason for NST Reasons for Nonstress Test: OTHER, SEE COMMENT Reason for NST Other: Elevated AFP Gestational Age Gestational Age in Weeks and Days: 38 Weeks and 4Days Test and Monitor Explained Test/Monitor Explained: Test Explained and Monitor Explained Vital Signs Blood Pressure: 107/69 Pulse: 90 Temperature: 97.9 F NST Information Date on Monitor: 05/01/22 Time on Monitor: 08:40 Date off Monitor: 05/01/22 Time off Monitor: 09:11 Total Time on Monitor: 31 NST Interventions: PO Hydration NST Evaluation Patient States Movement: Present FHR Baseline: 125 Variability: Moderate 6-25 bpm Accelerations: 15x15 Decelerations: None NST Results: Reactive Note NST Note Note: surveillance reassuring. NST Reviewed and Verified by: Elina Turner
== END 2022-05-01 09:20 | disposition home or self-care (01) ==
LOC: BCD 06:27 → OBS 08:43
PROVIDERS: PCP Family Medicine; Visit Provider Obstetrics & Gynecology Gynecology
DX: O26.893 Other specified pregnancy related conditions, third trimester (principal); R77.2 Abnormality of alphafetoprotein; Z3A.37 37 weeks gestation of pregnancy
CPT/HCPCS: 59025

== ENCOUNTER 2022-05-03 07:31 | Outpatient (CLI) | payer OTHER, SELFPAY ==
[2022-05-03 07:44] VITALS: BP 108/76; PULSE 93; TEMP 36.5
[2022-05-03 07:49] VITALS: BP 108/76; PULSE 93
[2022-05-13 20:54] VITALS: BP 108/76; PULSE 93; TEMP 36.5
--- NOTE | 2022-05-13 20:54 | W.OBNST ---
Date of service: 05/13/22 Time of Service: 20:54 NST Evaluation Reason for NST Reasons for Nonstress Test: OTHER, SEE COMMENT Reason for NST Other: Increased AFP Gestational Age Gestational Age in Weeks and Days: 38 Weeks and 4Days Test and Monitor Explained Test/Monitor Explained: Test Explained and Monitor Explained Vital Signs Blood Pressure: 108/76 Pulse: 93 Temperature: 97.7 F NST Information Date on Monitor: 05/03/22 Time on Monitor: 07:40 NST Interventions: PO Hydration NST Evaluation Patient States Movement: Present FHR Baseline: 130 Variability: Moderate 6-25 bpm Accelerations: 15x15 Decelerations: None NST Results: Reactive Note NST Note Note: Reassuring surveillance. NST Reviewed and Verified by: Elina Turner
== END 2022-05-03 08:35 | disposition home or self-care (01) ==
LOC: BCD 07:33 → OBS 07:42
PROVIDERS: PCP Family Medicine; Visit Provider Obstetrics & Gynecology Gynecology
DX: O26.893 Other specified pregnancy related conditions, third trimester (principal); R77.2 Abnormality of alphafetoprotein; Z3A.38 38 weeks gestation of pregnancy
CPT/HCPCS: 59025

== ENCOUNTER 2022-05-07 07:11 | Outpatient (CLI) | payer OTHER, SELFPAY ==
[2022-05-07 08:41] VITALS: BP 108/74; PULSE 93
[2022-05-07 08:48] VITALS: BP 108/74; PULSE 93; TEMP 36.7
[2022-05-10 11:23] VITALS: BP 108/74; PULSE 93; TEMP 36.7
--- NOTE | 2022-05-10 11:23 | W.OBNST ---
Date of service: 05/07/22 Time of Service: 09:00 NST Evaluation Reason for NST Reasons for Nonstress Test: OTHER, SEE COMMENT Reason for NST Other: Elevated AFP Gestational Age Gestational Age in Weeks and Days: 38 Weeks and 4Days Test and Monitor Explained Test/Monitor Explained: Test Explained, Monitor Explained and Patient Verbalized Understanding Vital Signs Blood Pressure: 108/74 Pulse: 93 Temperature: 98.1 F Urine Results Urine Protein: Negative Urine Ketones: Negative Urine Glucose: Negative Urine Blood: Negative NST Information Date on Monitor: 05/07/22 Time on Monitor: 08:38 Date off Monitor: 05/07/22 Time off Monitor: 09:30 Total Time on Monitor: 52 NST Interventions: PO Hydration NST Evaluation Patient States Movement: Present FHR Baseline: 130 Variability: Moderate 6-25 bpm Accelerations: 15x15 Decelerations: None NST Results: Reactive Note NST Note Note: See visit note NST Reviewed and Verified by: Vanesa Robles
== END 2022-05-07 09:45 | disposition home or self-care (01) ==
LOC: BCD 07:12 → OBS 08:19
PROVIDERS: PCP Family Medicine; Visit Provider Obstetrics & Gynecology
DX: O26.893 Other specified pregnancy related conditions, third trimester (principal); R77.2 Abnormality of alphafetoprotein; Z3A.38 38 weeks gestation of pregnancy
CPT/HCPCS: 59025

== ENCOUNTER 2022-05-08 13:32 | Outpatient (CLI) | payer OTHER, SELFPAY ==
[2022-05-08 13:42] VITALS: BP 124/84; PULSE 99; TEMP 36.5
[2022-05-08 13:48] VITALS: BP 124/84; PULSE 99
[2022-05-08 16:24] VITALS: BP 124/84; PULSE 99; TEMP 36.5
--- NOTE | 2022-05-08 16:24 | W.OBNST ---
Date of service: 05/08/22 Time of Service: 16:24 NST Evaluation Reason for NST Reasons for Nonstress Test: DECREASED MOVEMENT Gestational Age Gestational Age in Weeks and Days: 38 Weeks and 2Days Test and Monitor Explained Test/Monitor Explained: Test Explained and Monitor Explained Vital Signs Blood Pressure: 124/84 Pulse: 99 Temperature: 97.7 F NST Information Date on Monitor: 05/08/22 Time on Monitor: 13:30 Date off Monitor: 05/08/22 Time off Monitor: 14:05 Total Time on Monitor: 35 NST Interventions: PO Hydration NST Evaluation Patient States Movement: Present FHR Baseline: 125 Variability: Moderate 6-25 bpm Accelerations: 15x15 Decelerations: None NST Results: Reactive Note NST Note Note: Reactive NST, category 1 strip. Follow-up as scheduled NST Reviewed and Verified by: Mona Arroyo
== END 2022-05-08 14:10 | disposition home or self-care (01) ==
LOC: BCD 13:33 → OBS 13:40
PROVIDERS: PCP Family Medicine; Visit Provider Obstetrics & Gynecology Gynecology
DX: O36.8130 Decreased fetal movements, third trimester, not applicable or unspecified (principal); Z3A.38 38 weeks gestation of pregnancy
CPT/HCPCS: 59025

== ENCOUNTER 2022-05-10 07:20 | Outpatient (CLI) | payer OTHER, SELFPAY ==
[2022-05-10 07:45] VITALS: BP 114/68; PULSE 94; TEMP 36.8
[2022-05-10 07:51] VITALS: BP 114/68; PULSE 94
--- NOTE | 2022-05-10 11:21 | W.OBNST ---
Date of service: 05/10/22 Time of Service: 08:00 NST Evaluation Reason for NST Reasons for Nonstress Test: OTHER, SEE COMMENT Reason for NST Other: Increase AFP Gestational Age Gestational Age in Weeks and Days: 38 Weeks and 4Days Test and Monitor Explained Test/Monitor Explained: Test Explained and Monitor Explained Vital Signs Blood Pressure: 114/68 Pulse: 94 Temperature: 98.2 F NST Information Date on Monitor: 05/10/22 Time on Monitor: 07:42 Date off Monitor: 05/10/22 Time off Monitor: 08:40 Total Time on Monitor: 58 NST Interventions: PO Hydration NST Evaluation Patient States Movement: Present FHR Baseline: 125 Variability: Moderate 6-25 bpm Accelerations: 15x15 Decelerations: None NST Results: Reactive Note NST Note NST Reviewed and Verified by: Vanesa Robles
[2022-05-10 11:22] VITALS: BP 114/68; PULSE 94; TEMP 36.8
== END 2022-05-10 09:05 | disposition home or self-care (01) ==
LOC: BCD 07:21 → OBS 07:43
PROVIDERS: PCP Family Medicine; Visit Provider Obstetrics & Gynecology
DX: O26.893 Other specified pregnancy related conditions, third trimester (principal); R77.2 Abnormality of alphafetoprotein; Z3A.38 38 weeks gestation of pregnancy
CPT/HCPCS: 59025

== ENCOUNTER 2022-05-14 05:49 | Outpatient (CLI) | payer OTHER, SELFPAY ==
[2022-05-14 09:53] VITALS: BP 119/75; PULSE 90
[2022-05-14 10:04] VITALS: BP 119/75; PULSE 90; TEMP 36.8
[2022-05-14 10:15] VITALS: BP 119/75; PULSE 90; TEMP 36.8
--- NOTE | 2022-05-14 10:15 | W.OBNST ---
Date of service: 05/14/22 Time of Service: 10:15 NST Evaluation Reason for NST Reasons for Nonstress Test: OTHER, SEE COMMENT Reason for NST Other: Increased AFP Gestational Age Gestational Age in Weeks and Days: 39 Weeks and 1Days Test and Monitor Explained Test/Monitor Explained: Test Explained, Monitor Explained and Patient Verbalized Understanding Vital Signs Blood Pressure: 119/75 Pulse: 90 Temperature: 98.2 F Urine Results Urine Protein: Negative Urine Ketones: Negative Urine Glucose: Negative Urine Blood: Negative NST Information Date on Monitor: 05/14/22 Time on Monitor: 09:30 Date off Monitor: 05/14/22 Time off Monitor: 09:52 Total Time on Monitor: 22 NST Interventions: PO Hydration NST Evaluation Patient States Movement: Present FHR Baseline: 125 Variability: Moderate 6-25 bpm Accelerations: 15x15 Decelerations: None NST Results: Reactive Note NST Note Note: Reactive tracing, category 1. NST Reviewed and Verified by: Mona Arroyo
== END 2022-05-14 09:58 | disposition home or self-care (01) ==
LOC: BCD 05:50 → OBS 09:34
PROVIDERS: PCP Family Medicine; Visit Provider Obstetrics & Gynecology
DX: O09.523 Supervision of elderly multigravida, third trimester (principal); O28.1 Abnormal biochemical finding on antenatal screening of mother; R77.2 Abnormality of alphafetoprotein; Z3A.39 39 weeks gestation of pregnancy
CPT/HCPCS: 59025

== ENCOUNTER 2022-05-16 08:12 | Inpatient (IN) | payer OTHER, SELFPAY ==
[2022-05-16] VITALS (44 sets, daily range): BP systolic 116–137; BP diastolic 60–87; PULSE 88–112; RESP 16; TEMP 36.3–37.9; O2SAT 98–100; BMI 23.3
[2022-05-16] MEDS: Normal Saline Flush 10 ML SYR IVP (08:30)
--- NOTE | 2022-05-16 09:03 | ANES.PREOP_ITS ---
General Info Date of Service Date Performed: 05/16/22 Height: 5 ft 6 in Weight: 65.771 kg Body Mass Index (BMI): 23.3 Meds Allergies and Home Medications Allergies Allergy/AdvReac Type Severity Reaction Status Date / Time No Known Drug Allergies Allergy Verified 04/30/22 11:32 Home Medication Medication Instructions Recorded PNV 153-FA 400 mcg-om3 35 mg-dha tab PO 11/16/20 25 mg-epa 5 mg-fish oil chew tablet ( Gummies) calcium polycarbophil 625 mg See Rx Instructions PO BID 10/30/21 tablet (FiberCon) sennosides 8.6 mg tablet (Senokot) 8.6 mg PO DAILY PRN 10/30/21 simethicone 80 mg chewable tablet 80 mg PO BID-QID PRN 10/30/21 albuterol sulfate 90 mcg/actuation 2 puff inhalation Q6H PRN 11/12/21 aerosol inhaler shortness of breath or wheezing #8.5 grams diphenhydramine HCl 25 mg capsule 25 mg PO QHS PRN 11/28/21 (Benadryl) potassium, magnesium packet PO DAILY PRN 01/28/22 citrate-sodium bicarb 10 mEq oral powder packet ferrous sulfate 325 mg (65 mg 325 mg PO DAILY 04/02/22 iron) tablet (FeroSul) calcium carbonate 200 mg calcium 200 mg PO QID PRN 04/23/22 (500 mg) chewable tablet (Antacid (calcium carbonate)) Current Visit Medications: Current Medications Generic Name Dose Route Start Last Admin Trade Name Freq PRN Reason Stop Dose Admin Albuterol Sulfate 2 puff 05/16/22 08:15 Albuterol Hfa 8 Gm 60 Puff Inh IH Q6H PRN PRN shortness of breath or wheezin Device 1 each 05/16/22 09:00 Inhaler, Assist Device MC DIRECTED MARQUEZ Sodium Chloride 500 mls @ 0 mls/hr 05/16/22 08:11 Saline 500ml Bag IV PRN PRN As Directed Oxytocin/Sodium Chloride 30 unit in 500 mls @ 2 mls/hr 05/16/22 08:15 Pitocin/Normal Saline IV INFUSION [facility] Protocol 2 MILLIUNITS/MIN Ringer's Solution 1,000 mls @ 125 mls/hr 05/16/22 08:15 IV INFUSION MARQUEZ IV Miscellaneous Supplies 1 each 05/16/22 08:15 Iv Access IV DIRECTED MARQUEZ Sodium Chloride 0 ml 05/16/22 08:11 Normal Saline Flush 10 Ml Syr IVP PRN PRN PFSH Active Problems Active Problems: Problem Status Onset Code Elevated AFP R77.2 Advanced maternal age (AMA) in Z34.90 STEPHAN (generalized anxiety disorder) 08/18/15 F41.1 Migraine with aura 01/17/15 G43.109 Medical History Medical History (Updated 01/28/22 @ 10:13 by Vanesa Robles MD) Acne (07/18/14) Hx of abnormal cervical Pap smear 2008 ASCUS/HPV+ Colpo/Bx [facility] 11/2009 Colpo [facility] 11/2010 LSIL/HPV+ [facility] 12/2010 Colpo/Bx CIN1 [facility] 07/2011 Pap Negative 12/2011 Pap Negative Interstitial cystitis no evidence of IC by workup and cystoscopy in the past 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 Date GA/Weeks # Preg Succ Route Wgt Sex Labor Lgth Anesth esia Location [facility] 03/25/19 41 No vaginal 3373.593 g Female [facility] [place]/Gabriela Gutierrez in attendance 05/23/21 Delivery Date: 03/25/19 Last Updated by: Mona Echeverria LPN Induced due to postdates; misoprostil, oxytocin. Vacuum assist, Kiwi, secondary to inadequate maternal pushing Delivery Date: 05/23/21 Last Updated by: Sherin Garrido NP SAB Vital Signs and Lab Results Vital Signs Most Recent Vital Signs in EMR: Most Recent Vital Signs Temp Pulse Resp BP 36.4 C L 88 16 130/81 05/16/22 08:46 05/16/22 08:46 05/16/22 08:46 05/16/22 08:46 Lab Results Result Diagrams: 05/16/22 08:12 Blood Type / Crossmatch: Patient ABO/Rh A Positive 05/16/22 Antibody Screen NEGATIVE 05/16/22 Complete Blood Count: White Blood Count 9.74 10^3/uL (4.4-10.8) 05/16/22 08:12 Red Blood Count 3.98 10^6/uL (3.93-5.22) 05/16/22 08:12 Hemoglobin 12.0 g/dL (11.2-15.7) 05/16/22 08:12 Hematocrit 35.0 % (36.0-46.0) L 05/16/22 08:12 Platelet Count 164 10^3/uL (130-400) 05/16/22 08:12 Complete Metabolic Panel: No Data to Display Liver Function Panel: No Data to Display Coagulation Panel: No Data to Display Cardiac Panel: No Data to Display Arterial Blood Gas: No Data to Display Venous Blood Gas: No Data to Display Pancreas Panel: No Data to Display Thyroid Panel: No Data to Display Infectious Disease: Coronavirus (COVID-19)(PCR) Negative (Negative) 05/16/22 08:55 Coronavirus 2019 Source Nasal/Nares 05/16/22 08:55 Blood Cultures: No Data to Display Toxicology Panel: Urine Amphetamines Screen Negative (Negative) 04/23/22 11:10 Urine Benzodiazepines Screen Negative (Negative) 04/23/22 11:1 0 Urine Barbiturates Screen Negative (Negative) 04/23/22 11:10 Urine Cocaine Screen Negative (Negative) 04/23/22 11:10 Urine Methadone Screen Negative (Negative) 04/23/22 11:10 Urine Opiates Screen Negative (Negative) 04/23/22 11:10 Ur Tricyclic Antidepressants Screen Negative (Negative) 11:10 Ur Tetrahydrocannabinol (THC) Scrn Negative (Negative) 2 11:10 Panel: No Data to Display Imaging and Studies Imaging and Studies Study information below may be from another EMR and interpreted by another provider. Please see original notes in EMR for more complete details. Echocardiogram Summary: Date of Exam: 04/05/21Sex: F Admission Date: 04/05/21 : 1985 Age: 36 APPROVED REPORT EXAM: Comprehensive 2D, Doppler, and color-flow Echocardiogram Patient Location: Out-Patient Steel Hanger: Haylee Schwartz RDCS (AE) Indications: Post covid syndrome, Occasional chest tightness Other Information Study Quality: Good Conclusion Normal left ventricular wall thickness and chamber size. Estimated ejection fraction is 60%. There are no segmental wall motion abnormalities Normal right ventricular size and systolic function Both atria are normal in size There are no structural or hemodynamically significant valvular abnormalities Anesthesia Assessment and Plan Anesthesia History Personal History: No History of Anesthesia Complications Family History: No Family History of Anesthesia Complications Exercise Tolerance Exercise Tolerance: Metabolic Equivalents>4 Pertinent Negatives Pertinent Negatives: No Major Cardiovascular Symptoms or Complaints and No Major Pulmonary Symptoms or Complaints Cardiac & Pulmonary Exam Cardiac Exam: Normal S1/S2 Heart Sounds Pulmonary Exam: Clear Bilateral Breath Sounds Implantable Cardiac Device Does patient have a Pacemaker or an ICD?: No Airway Exam Known Difficult Airway: No Mallampati Class: 1 Mouth Opening: Normal (> 3cm) Thyromental Distance: Greater than 3 cm Neck Range of Motion: Full ROM Neck Circumference: Normal Teeth Condition: Normal Dentition ASA Classification ASA Score: ASA 2 Emergency Case?: No NPO Status NPO Status: Full Stomach Status Status: Confirmed Anesthesia Plan Resuscitation Status: Full Code Anesthesia Technique: Spinal Anesthesia Airway Planned: Natural Airway Monitors Used: Standard Monitors
[2022-05-16] MEDS: Lactated Ringers 1,000 ML 125 ML IV (09:05)
[2022-05-16 09:10] LABS: MCH 30.2 pg (27.0-33.0); MCHC 34.3 % (32.0-36.0); MCV 88 fL (80-95); MPV 8.7 fL (8.0-11.0); Platelet Count 164 10^3/uL (130-400); RBC 3.98 10^6/uL (3.93-5.22); RDW 14.3 % (11.7-14.6); RDW-SD 46.2 fL; WBC 9.74 10^3/uL (4.4-10.8)
[2022-05-16 09:14] LABS: Source Nasal/Nares
[2022-05-16] MEDS: FentaNYL/ROPIvacaine 2 mcg/ml and 0.1% 200 ML CADD Cassette EP (09:42)
[2022-05-16 09:48] LABS: COVID-19 PCR Negative (Negative)
--- NOTE | 2022-05-16 09:53 | ANES.NEUR_ITS ---
Epidural/Spinal Catheter Date Performed: 05/16/22 Procedure Start: 09:10 Procedure Stop: 10:01 Requesting Provider: Vanesa Robles Procedure Location: Obstetrics Reason Performed: Labor Epidural Standard Monitors Applied: Blood Pressure, SpO2 and See EMR for corresponding vital signs Patient Position: Sitting Sedation Given (Indicate Dose Given): No Sedation given Patient Mental Status: Awake Sterility: Hand Hygiene, Surgical Cap, Surgical Mask, Sterile Gloves, Sterile Drape/Sheet and Chlorhexidine Procedure Location: L3-L4 Interspace Epidural Needle: Tuohy 18 Gauge Needle Length: 3.5 Inch Needle Approach: Midline Epidural Procedure: Skin Prepped, Sterile Drape Placed, 1% Lidocaine to skin and subcutaneous tissue with 25G needle, Tuohy Needle placed, ZORAIDA to Saline Used, Epidural Catheter Placed, Negative Heme, Negative CSF Flow and Tuohy Needle Removed Catheter Placed?: Catheter Placed Test Dose (Indicate Dose Given): 3ml 1.5% Lidocaine with 1:200K Epinephrine Given and Negative Test Dose Loss of Resistance Depth (cm): 4 Catheter depth at skin (cm): 10 Dressing: Sorbaview Dressing Placed, Mastisol Used and Dressing reinforced with Tape Epidural Prov ider Bolus (Indicate Dose Given): Total bolus dose given in 3-5 ml divided doses and Total Ropivacaine 0.1% with Fentanyl 2mcg/ml Given from pump. (ml) Dose:: 10ml Additives (Indicate Dose Given ): None Infusion Medication: Medication Infusion Began Medication Infusion: Ropivacaine 0.1% with Fentanyl 2mcg/ml Maintenance Infusion Rate (ml/hour): 10 PCEA Bolus Dose (ml): 5 Block Level: N/A Paresthesia: None Ultrasound: Not Used Number of Attempts (See previous attempts in note section): 1 Procedure Tolerated: No Complications and Patient tolerated well Procedure Outcome: Successful Procedure Comment:: Discussed epidural procedure and use of PCEA button. Catheter placed with ease with good ZORAIDA. Test dose at 0934. Dosed epidural given previous discomfort with attempt at AROM. Leg motor is 5/5. Performed By: Leon Tuttle
[2022-05-16] MEDS: Oxytocin/Normal Saline 30 UNIT/500 ML BAG 2 UNITS IV (10:38)
--- NOTE | 2022-05-16 11:05 | W.PM.OBHPL1 ---
Date of service: 05/16/22 Time of Service: 09:00 Assessment and Plan Assessment and plan (1) : Assessment and plan: Induction started with AROM and low-dose pitocin. Epidural in place. Anticipate NVD. OB-HPI Labor/Delivery History of Present Illness Reason for Visit: Induction Chief Complaint: Scheduled Induction of Labor Indication for Induction: Other (elevated AFP). MARLENA Calculator Estimated Delivery Date Method WG Current Estimate 05/20/22 LMP (Certain) Other Estimates 05/19/22 Ultrasound #1 Delivery Date-Baby A 05/16/22 39w 3d History of Present Expected Delivery Route/Plan BERE Flores Pt requests induction prior to MARLENA, early epidural Specific Issues/Plan 1. [place] drawn 10/30, patient does not want gender told to her with results but put in envelope 2. Elevated AFP - MFM consult: Normal ultrasound of brain and spine. Amnio declined. testing and growth U/S q 3-4 weeks starting at 28 weeks. 3. Subchorionic hemorrhage noted on 21wk sono. - Growth sonos appropriate, resolved. 4. Anxiety. Declines any medication during . Open to medication . Review of Systems Constitutional Constitutional: Reports system reviewed and no additional complaints, except as documented Gastrointestinal Gastrointestinal: Denies nausea and Denies vomiting Genitourinary Genitourinary: Reports system reviewed and no additional complaints, except as documented Musculoskeletal Comments: No regular contractions PFSH All Active Problems (Updated 05/16/22 @ 18:08 by Vanesa Robles MD) STEPHAN (generalized anxiety disorder) (Chronic 08/18/15) Migraine with aura (Chronic 01/17/15) Medical History (Updated 05/16/22 @ 18:08 by Vanesa Robles MD) Acne (07/18/14) Hx of abnormal cervical Pap smear 2008 ASCUS/HPV+ Colpo/Bx [facility] 11/2009 Colpo [facility] 11/2010 LSIL/HPV+ [facility] 12/2010 Colpo/Bx CIN1 [facility] 07/2011 Pap Negative 12/2011 Pap Negative Interstitial cystitis no evidence of IC by workup and cystoscopy in the past 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 Sister Depression Bipolar disorder Social History Smoking/Tobacco Use Status: Never Smoking risk assessment performed?: Yes Alcohol Intake: former Drug use: Never Substance use type: does not use Household members: spouse current occupation: RN [employer] Sexually active: Yes Female Reproductive History Menstrual Age of Menarche: 14 Duration of menses: 3-5 days control method: none History History 3 Para 1 Hx # Term Pregnancies 1 Multiple births 0 Hx # Pregnancies 0 Ectopic pregnancies 0 AB induced 0 Hx Number of Living Children 1 AB spontaneous 1 Past Pregnancies Del. Date GA/Weeks # Preg Succ Route Wgt Sex Labor Lgth Anesthesia Location Prov Complic 03/25/19 41 No vaginal 7 lb 7 oz Female regional [place]/Gabirela Gutierrez in attendance 05/23/21 05/16/22 39 No Yes vaginal 7 lb 2 oz Female 3hr [facility] Delivery Date: 03/25/19 Last Updated by: Mona Echeverria LPN Induced due to postdates; misoprostil, oxytocin. Vacuum assist, Kiwi, secondary to inadequate maternal pushing Delivery Date: 05/23/21 Last Updated by: Sherin Garrido FENCE E[employer]OR SAB Delivery Date: 05/16/22 Last Updated by: Vanesa Robles MD Term induction, AROM/pit @2, 2hrs from 3-10cm, pushed x1hr Meds Allergies and Home Medications Allergies Allergy/AdvReac Type Severity Reaction Status Date / Time No Known Drug Allergies Allergy Verified 04/30/22 11:32 Home Medications Medication Instructions Recorded Confirmed Type PNV 153-FA 400 mcg-om3 35 mg-dha tab PO 11/16/20 05/14/22 History 25 mg-epa 5 mg-fish oil chew tablet ( Gummies) calcium polycarbophil 625 mg See Rx Instructions PO BID 10/30/21 05/16/22 History tablet (FiberCon) sennosides 8.6 mg tablet (Senokot) 8.6 mg PO DAILY PRN 10/30/21 05/16/22 History simethicone 80 mg chewable tablet 80 mg PO BID-QID PRN 10/30/21 05/16/22 History albuterol sulfate 90 mcg/actuation 2 puff inhalation Q6H PRN 11/12/21 05/14/22 Rx aerosol inhaler shortness of breath or wheezing #8.5 grams diphenhydramine HCl 25 mg capsule 25 mg PO QHS PRN 11/28/21 05/16/22 History (Benadryl) potassium, magnesium packet PO DAILY PRN 01/28/22 05/14/22 History citrate-sodium bicarb 10 mEq oral powder packet ferrous sulfate 325 mg (65 mg 325 mg PO DAILY 04/02/22 05/16/22 History iron) tablet (FeroSul) calcium carbonate 200 mg calcium 200 mg PO QID PRN 04/23/22 05/16/22 History (500 mg) chewable tablet (Antacid (calcium carbonate)) flu vacc [id number] 6mos up(PF) 60 0.5 ml IM ONCE #0.5 mL 05/10/22 05/16/22 Clinic mcg(15 mcgx4)/0.5 mL IM syringe Exam Physical Exam Vital signs: Temp Pulse Resp BP Pulse Ox 97.9 F 100 H 16 123/80 99 05/16/22 10:49 05/16/22 10:48 05/16/22 08:46 05/16/22 10:48 05/16/22 09:51 Vital Signs Reviewed: Yes Detailed Labor and Delivery Exam Dilation: 3 Effacement (%): 90 station: 0 Cervix position: posterior Consistency: soft Knowles Score: Cervical Points Exam 0 1 2 3 Dilation Closed 1-2cm 3-4 cm 5-6cm Effacement 0-30% 40-50% 60-70% 80% Consistency Firm Medium Soft Station -3 -2 -1,0 +1,+2 Position Posterior Mid Anterior KNOWLES Score(Cervical Ripeness Score): 11 Amniotic Membrane Status: Intact Rupture Method: Artifical Amniotic Fluid: Clear Fetus A Heart Rate Baseline: 130 Monitor Accelerations: Present Monitor Decelerations: None Variability: Moderate (6-25 BPM) Presentation: Vertex Categories: Category I Date of Membrane Rupture: 05/16/22 Time of Membrane Rupture: 10:02 Detailed HEENT Exam Head: Present normocephalic and atraumatic Detailed Abdominal Exam Comments: gravid, nontender Detailed Neurological Exam Neurological: Present alert, oriented X3 and CN II-XII intact DetailedPsychiatric Exam Psychiatric: Present normal affect, normal thought process and cooperative Results Results Group Beta Strep: Negative Abnormal Lab Findings: Abnormal Labs 05/16/22 08:12 Hct 35.0 L Risk Assessment Risk for Shoulder Dystocia Historical/Initial OB: NEGATIVE FOR: Pelvic Abnormality, Pre- BMI>30, Previous Shoulder Dystocia or Previous Macrosomia Date/Initial: 10/30/21 Risk for Pre-Eclampsia Yes, if one or more: NEGATIVE FOR: Hx Pre-E/Gest HTN, Chronic HTN, Multiple Gestation, Pre-gestational DM, Renal Disease, Systemic Lupus or APA Syndrome Yes, if 2 or more: POSITIVE FOR: Age>= 35 yrs; NEGATIVE FOR: Nulliparity, >10yr btwn pregnancies, BMI>30, ethinicty, Mother/Sister w/ Pre-E or Previous IUGR Risk for Post- Hemorrhage Initial: NEGATIVE FOR: Multiple Gestation, Previous PPH, Known Clotting Deficiency, Grand Multiparity or Anticoagulation Risks Reviewed Risks Reviewed Upon Admission: Yes
[2022-05-16] MEDS: miSOPROStol 200 MCG TAB 800 MCG PR (14:09)
[2022-05-16] MEDS: Ibuprofen 600 MG TAB PO (16:47)
[2022-05-16] MEDS: Acetaminophen 325 MG TAB 650 MG PO (16:47)
--- NOTE | 2022-05-16 18:09 | W.OBDELIVERY ---
Date of service: 05/16/22 Time of Service: 13:31 OB Labor/ Delivery Information Baby A Delivery Delivery Method: Spontaneaous Presentation: Vertex Vertex Position: Right Occipital Anterior Cord Description-Baby A: 3 Vessels Amniotic Fluid: Clear Estimated Blood Loss: 400ml Delivery Outcome: Liveborn Note: The pt was found to be fully dilated. She pushed ~1hr to deliver the 's head in ALISON position followed by the shoulders and the rest of the body. The baby was placed on mom's abdomen. After >1min the cord was clamped x2 and cut. Cord blood collected. The placenta was slow to deliver. The cord gradually lengthened and with aggressive fundal massage and gentle cord traction it delivered at 30min post delivery. It appeared intact though was fairly calcified. There was initial increased bleeding right after placental delivery. Pitocin was started and 800mcg misoprostol was given WI with quick improvement in bleeding. Fundus was firm with good hemostasis resulting. Mom and baby stable at time of note. Providers Doctor: Vanesa Robles Nurse: José Miguel Banegas Nurse: Christal Ba Labor/Delivery Information Number of Babies in Womb: 1 Steroids Given: None Reason Steroids Not Administered: N/A Group Beta Strep: Negative Antibiotics Administered: No Rubella Status: Immune Varicella Immunity: Immune Shoulder Dystocia: No Stages of Labor Onset of Labor Date: 05/16/22 Onset of Labor Time: 10:38 Complete Dilatation Date: 05/16/22 Complete Dilatation Time: 12:28 Labor - Stage 1 Duration: 1 hours and 50 minutes ROM Baby A: 05/16/22 ROM Baby A: 10:02 ROM Total Time- Baby A: [id number] Delivery Date-Baby A: 05/16/22 Infant Delivery Time-Baby A: 13:31 Labor Stage 2 Duration: 1 hours and 3 minutes Placenta Delivery Date-Baby A: 05/16/22 Placenta Delivery Time-Baby A: 14:01 Labor-Stage 3 Duration: 30 minutes Total Length of Labor-Baby A: 2 hours and 53 minutes Placenta Status: Delivered Baby A Infant Gender: Female Gestational Status: Term (39-41.6 wks) Gestational Age in Weeks/Days: 39 Weeks and 3 Days weight: 7 lb 1.582 oz Length-Baby A: 19 in Head Circumference-Baby A: 13.5 in Score-1 Minute Interval(Baby A) Heart Rate-1 minute: 100 BPM or Greater Respiratory Effort- 1 minute: Spontaneous/Strong Cry Muscle Tone-1 minute: Active Movement Reflex Response-1 minute: Prompt Response Color-1 minute: Pallor or Cyanosis Total Score-1 minute: 8 Score-5 Minute Interval(Baby A) Heart Rate- 5 minute: 100 BPM or Greater Respiratory Effort-5 minute: Spontaneous/Strong Cry Muscle Tone-5 minute: Active Movement Reflex Response-5 minute: Prompt Response Color-5 minute: Bluish Hands or Feet Total Score- 5 minute: 9
[2022-05-16] MEDS: Dibucaine 1% 28 GM TUBE TP (18:40)
[2022-05-16] MEDS: Hamamelis Leaf/Glycerin 100 EACH BOX PR (18:40)
[2022-05-17 00:53] VITALS: BP 109/71; PULSE 83; RESP 18; TEMP 36.6; O2SAT 98
[2022-05-17] MEDS: Ibuprofen 600 MG TAB PO ×2 (04:27→10:09)
[2022-05-17] MEDS: Acetaminophen 325 MG TAB 650 MG PO ×2 (04:27→10:07)
--- NOTE | 2022-05-17 09:26 | OBPPV_ITS ---
Date of service: 05/17/22 Time of Service: 09:26 Assessment and Plan Assessment and plan (1) Normal spontaneous vaginal delivery: Status: Acute Assessment and plan: Patient is day 1 status postnormal spontaneous vaginal delivery after labor induction after 39 weeks due to elevated AFP. She is doing well today. Desires discharge to home. Baby is nursing without difficulty. She will be seen back in the office in 2 and 6 weeks. Subjective Subjective Interval history: Patient seen and examined day #1. She is doing well after her vaginal delivery. She is ambulating, tolerating regular diet and ibuprofen for discomfort. She is breast-feeding without difficulty. She and her desire discharged home today if possible [place] baby status: Doing well, Nursing well and Strong Bonding Observed Exam Physical Exam Vital signs: Temp Pulse Resp BP Pulse Ox 97.9 F 83 18 109/71 98 05/17/22 00:53 05/17/22 00:53 05/17/22 00:53 05/17/22 00:53 05/17/22 00:53 Vital Signs Reviewed: Yes Constitutional Constitutional: no acute distress Respiratory Exam Respiratory Exam: Normal Cardiovascular Exam Cardiovascular Exam: Normal Abdominal Exam Comments: Soft, nontender Fundal Exam Fundus: Below Umbilicus and Firm Extremities Exam Extremity Exam: Normal; negative Calf Tenderness Neurological Exam Neurological Exam: Normal Psychiatric Exam Psychiatric Exam: Normal Results Hemoglobin/Hematocrit: Hgb 12.0 g/dL (11.2-15.7) 05/16/22 08:12 Hct 35.0 % (36.0-46.0) L 05/16/22 08:12 Abnormal Lab Findings: Abnormal Labs 05/16/22 08:12 Hct 35.0 L
[2022-05-17 09:30] VITALS: BP 112/72; PULSE 83; RESP 16; TEMP 36.8
--- NOTE | 2022-05-17 09:30 | DSE_ITS ---
Date of service: 05/17/22 Time of Service: 09:30 DS: Diagnosis Discharge Diagnosis (1) Normal spontaneous vaginal delivery: Status: Acute Asessment and Plan: Post day #1 status postnormal spontaneous vaginal delivery after labor induction due to elevated AFP. Delivered a viable female infant Discharge Plan Disposition Patient Disposition: HOME Condition: Good Discharge Details Reason For Visit: Induction Admit Date/Time: 05/16/22 08:12 Admit Provider: Vanesa Robles Attending Provider: Vanesa Robles Primary Care Provider: Blaine Kohler [facility] Hospital Course: Patient presented to the center for labor induction. She had Pitocin augmentation of labor followed by epidural for pain control and artificial rupture of membranes for clear fluid. Within 6 hours time, she delivered by normal spontaneous vaginal delivery of viable female infant without difficulty. She request discharge to home day #1. She is ambulating, tolerating regular diet and oral pain medication and breast-feeding her daughter. All of her questions were answered. Home Meds and New Rx's Prescriptions: New ibuprofen 800 mg tablet 800 mg PO Q8H PRNQty: 30 1RF No Action Gummies 400 mcg-35 mg- 25 mg-5 mg tablet,chewable PO sennosides [Senokot] 8.6 mg tablet 8.6 mg PO DAILY PRN calcium polycarbophil [FiberCon] 625 mg tablet See Rx Instructions PO BID Rx Instructions: 2 teaspoons PO twice a day; simethicone 80 mg tablet,chewable 80 mg PO BID-QID PRN diphenhydramine HCl [Benadryl] 25 mg capsule 25 mg PO QHS PRN ferrous sulfate [FeroSul] 325 mg (65 mg iron) tablet 325 mg PO DAILY calcium carbonate [Antacid (calcium carbonate)] 200 mg calcium (500 mg) tablet,chewable 200 mg PO QID PRN flu vacc [id number] 6mos up(PF) 60 mcg (15 mcg x 4)/0.5 mL syringe 0.5 ml IM ONCE Qty: 0.5 0RF pot,mag citrate-sodium bicarb 10 mEq powder in packet PO DAILY PRN Label Comments: 01/28/22- Pt reports taking a 1 gram dose of oral powder albuterol sulfate 90 mcg/actuation HFA aerosol inhaler 2 puff inhalation Q6H PRN (Reason: shortness of breath or wheezing) Qty: 8.5 0RF Discharge Instructions Stand Alone Forms: BC Instructions, BC Post Vaginal Deliver Activity:: Activity as Tolerated Equipment/Supplies:: No Equipment Needed Diet:: As Tolerated Discharge Orders Discharge Orders: Discharge Order (Routine); Ordered 05/17/22 Ordered By: Mona Arroyo OB:DS Summary Summary Vaginal Delivery Method: Spontaneaous Laceration Extension: Second Degree Contraception Discussed Contraception Discussed: Yes Contraceptive Plan: Undecided, [place] Gender-Baby A: Female weight: 7 lb 1.582 oz Status at Discharge Functional status at discharge: independent ambulation Overall status at discharge: patient is back to baseline Mental Status: mental status grossly normal Speech and Movement: speech and movement normal Mood: congruent mood Affect: normal affect Exam Physical Exam Vital signs: Temp Pulse Resp BP Pulse Ox 97.9 F 83 18 109/71 98 05/17/22 00:53 05/17/22 00:53 05/17/22 00:53 05/17/22 00:53 05/17/22 00:53 Narrative: Please see physical exam from progress note dated 05/17/2022 PFSH All Active Problems (Updated 05/17/22 @ 09:27 by Mona Arroyo DO) Normal spontaneous vaginal delivery (Acute) STEPHAN (generalized anxiety disorder) (Chronic 08/18/15) Migraine with aura (Chronic 01/17/15) Medical History (Updated 05/17/22 @ 09:27 by Mona Arroyo DO) Acne (07/18/14) Hx of abnormal cervical Pap smear 2008 ASCUS/HPV+ Colpo/Bx [facility] 11/2009 Colpo [facility] 11/2010 [facility]IL/HPV+ [facility] 12/2010 Colpo/Bx CIN1 [facility] 07/2011 Pap Negative 12/2011 Pap Negative Interstitial cystitis no evidence of IC by workup and cystoscopy in the past [id number] syndrome TMJ arthritis Vaginal irritation Surgical History Cervical Procedure Colpos/Bx /JUVENTINO 1 Hymenectomy 2001 Family History Maternal Grandfather Heart disease Hyperlipidemia Diabetes Paternal Grandfather Heart disease Hyperlipidemia Alcohol abuse Paternal Uncle Heart disease Hyperlipidemia Father Hyperlipidemia Hypertension Mother Alcohol abuse In recovery for over 15 years. Sister Depression Bipolar disorder Social History Smoking/Tobacco Use Status: Never Smoking risk assessment performed?: Yes Alcohol Intake: former Drug use: Never Substance use type: does not use Household members: spouse current occupation: RN [employer] Sexually active: Yes Female Reproductive History Menstrual Age of Menarche: 14 Duration of menses: 3-5 days control method: none History History 3 Para 1 Hx # Term Pregnancies 1 Multiple births 0 Hx # Pregnancies 0 Ectopic pregnancies 0 AB induced 0 Hx Number of Living Children 1 AB spontaneous 1 Past Pregnancies Del. Date GA/Weeks # Preg Succ Route Wgt Sex Labor Lgth Anesth esia Location [facility] 03/25/19 41 No vaginal 7 lb 7 oz Female [facility] [place]riela Gutier[facility] in attendance 05/23/21 05/16/22 39 No Yes vaginal 7 lb 2 oz Female 3hr [facility] Delivery Date: 03/25/19 Last Updated by: Mona Echeverria LPN Induced due to postdates; misoprostil, oxytocin. Vacuum assist, [place], secondary to inadequate maternal pushing Delivery Date: 05/23/21 Last Updated by: Sherin Garrido NP SAB Delivery Date: 05/16/22 Last Updated by: Vanesa Robles MD Term induction, AROM/pit @2, 2hrs from 3-10cm, pushed x1hr DS: Data Vitals/I&O Vitals and I&O: Vital Signs Temperature 97.9 F 05/17/22 00:53 Pulse 83 05/17/22 00:53 Pulse Rhythm Regular 05/16/22 20:53 Respiratory Rate 18 05/17/22 00:53 Respiratory Depth Normal 05/16/22 20:53 Blood Pressure 109/71 05/17/22 00:53 Blood Pressure Mean 83 05/17/22 00:53 Pulse Oximetry 98 05/17/22 00:53 Intake & Output 05/16/22 05/16/22 05/17/22 11:59 23:59 11:59 Intake Total 539.083 / 1039.083 500.000 / 1039.083 460.917 / 460.917 Output Total 200 / 800 600 / 800 500 / 500 Balance 339.083 / 239.083 -100.000 / 239.083 -39.083 / -39.083 Weight 145 lb Intake: IV 539.083 / 1039.083 500.000 / 1039.083 460.917 / 460.917 Output: Urine 200 / 800 600 / 800 500 / 500 Other: Urine Color Yellow Straw Bright Red Urine Appearance Clear Clear Cloudy Clots Urine Odor None Normal Voiding Methods Toilet Toilet Toilet Data Completed and Pending Labs on day of discharge: Labs from last 24 hours 05/16/22 05/16/22 05/16/22 14:51 08:55 08:55 COVID-19 Source Cancelled SARS-CoV-2 (PCR) Cancelled Negative Patient ABO/Rh A Positive Antibody Screen NEGATIVE
[2022-05-17] MEDS: Dibucaine 1% 28 GM TUBE TP (10:09)
--- NOTE | 2022-05-17 12:31 | W.ANESPOSTOP ---
Postoperative Evaluation Date, Time and Location Date Performed: 05/17/22 Time Performed: 09:33 Patient Location: Obstetrics Vital Signs Most Recent Imported Vital Signs: Most Recent Vital Signs Temp Pulse Resp BP Pulse Ox 36.8 C 83 16 112/72 98 05/17/22 09:30 05/17/22 09:30 05/17/22 09:30 05/17/22 09:30 05/17/22 00:53 Pain Score Most Recent Pain Score: Most Recent Pain Score Pain Level 3 05/17/22 10:09 Assessment Mental Status: Awake (Alert & Oriented to Patient Baseline) Airway and Respiratory Function: Patent airway with normal (patient baseline) respiratory exam Cardiovascular Function: Hemodynamically Stable Hydration Status: Adequately Hydrated Nausea & Vomiting: No Nausea or Vomiting Pain: Pain is tolerable per patient Peripheral Nerve Block: Patient did not receive a nerve block Postoperative Comments:: All effects of epidural worn off. Pt. doing well.
== END 2022-05-17 15:30 | disposition home or self-care (01) | DRG 806 ==
PROVIDERS: Admitting Provider Obstetrics & Gynecology; PCP Family Medicine; Visit Provider Obstetrics & Gynecology
DX: O99.344 Other mental disorders complicating childbirth (principal); O99.354 Diseases of the nervous system complicating childbirth; Z37.0 Single live birth; F41.1 Generalized anxiety disorder; Z3A.39 39 weeks gestation of pregnancy; U09.9 Post COVID-19 condition, unspecified; G43.109 Migraine with aura, not intractable, without status migrainosus
CPT/HCPCS: 36415; 85027; 86850; 86900; 86901; 87635

== ENCOUNTER 2022-09-20 14:03 | Outpatient (REF) | payer OTHER, SELFPAY ==
--- NOTE | 2022-09-20 13:45 | SKI_PTH ---
PATIENT: Real Craven LOC: [facility] U#:[id number] AGE/SX: 37/F ROOM: RE09/20/[address]: Saima Talbert : 1985 BED: DIS: 09/20/2022 SPEC #: [id number] RECD: 09/20/22 18:18 STATUS: ROLANDA RE #: [id number] MARY: 09/20/22 13:[address]: Saima Talbert DEPT: Surgical Specimen RECD BY: Urmila Rahman ENTERED: 09/20/22 18:20 SP TYPE: MELCHOR EDWARDS DR: Blaine Kohler DO Tissues: 1 - SKIN BIOPSY(SHAVE/PUNCH) 2 - SKIN BIOPSY(SHAVE/PUNCH) 3 - SKIN BIOPSY(SHAVE/PUNCH) Procedures: SKIN LEVEL 4 Comments: [id number]
== END 2022-09-20 14:04 | disposition home or self-care (01) ==
LOC: LBN 14:03
PROVIDERS: PCP Family Medicine; Visit Provider Surgery
DX: L82.1 Other seborrheic keratosis (principal); D22.5 Melanocytic nevi of trunk
CPT/HCPCS: 88305

== ENCOUNTER 2023-02-07 11:16 | Outpatient (CLI) | payer OTHER, SELFPAY ==
[2023-02-07] MEDS: Inhaler, Assist Device 1 EACH MC (14:48)
[2023-02-07] MEDS: Albuterol HFA 18 GM 200 PUFF INH IH (14:48)
--- NOTE | 2023-02-10 16:16 | W.PFT ---
Date of service: 02/07/23 Time of Service: 13:29 Pulmonary Function Test Result Indications: Vocal fatigue Interpretation Spirometry: There is no airflow limitation. There is no bronchodilator response. Note: Normal spirometry Clinical Correlation therefore is recommended.
== END 2023-02-07 11:17 | disposition home or self-care (01) ==
LOC: RT 11:22
PROVIDERS: PCP Family Medicine; Visit Provider Family Medicine
DX: R49.0 Dysphonia (principal); R06.00 Dyspnea, unspecified
CPT/HCPCS: 94060

== ENCOUNTER 2023-02-07 14:53 | Outpatient (CLI) | payer OTHER, SELFPAY ==
[2023-02-07 10:11] LABS: ESR < 1 mm/hr (0-20)
[2023-02-07 10:59] LABS: ALT 23 U/L (14-59); AST 14 U/L (15-37); Albumin 4.3 g/dL (3.4-5.0); Alkaline Phosphatase 89 U/L (46-116); BUN 21 mg/dL (7-18); Bilirubin, Total 2.5 mg/dL (0.2-1.0); CREATININE 0.8 mg/dL (0.55-1.02); Calcium 9.3 mg/dL (8.5-10.1); Chloride 103 mmol/L (98-107); Estimated GFR 97.87 (mL/min/1.73m2); Glucose 76 mg/dL (74-106); Potassium 4.3 mmol/L (3.5-5.1); Sodium 141 mmol/L (136-145); TSH (W/Ref FT4) 1.94 uIU/mL (0.36-3.74); Total Protein 7.7 g/dL (6.4-8.2)
== END 2023-02-07 14:54 | disposition home or self-care (01) ==
LOC: LBO 14:54
PROVIDERS: PCP Family Medicine; Visit Provider Family Medicine
DX: G43.109 Migraine with aura, not intractable, without status migrainosus (principal); R49.8 Other voice and resonance disorders; R53.83 Other fatigue; R53.1 Weakness
CPT/HCPCS: 36415; 80053; 85652; 83519; 84443

== ENCOUNTER 2023-02-11 09:03 | Outpatient (CLI) | payer OTHER, SELFPAY ==
[2023-02-11 10:16] LABS: Abs Immature Grans 0.04 10^3/uL (0.0-0.06); Absolute Basophil Count 0.02 10^3/uL (0.0-0.2); Absolute Eosinophil Count 0.06 10^3/uL (0.0-0.7); Absolute Monocyte Count 0.33 10^3/uL (0.1-0.8); Absolute Neutrophil Count 3.09 10^3/uL (1.2-6.7); Basophils % 0.4; Eosinophils % 1.1; HCT 44.9 % (36.0-46.0); HGB 15.1 g/dL (11.2-15.7); Immature Grans % 0.7; Lymphocytes % 33.7; MCH 29.3 pg (27.0-33.0); MCHC 33.6 % (32.0-36.0); MCV 87 fL (80-95); MPV 8.6 fL (8.0-11.0); Monocytes % 6.2; Neutrophils % 57.9; Platelet Count 258 10^3/uL (130-400); RBC 5.15 10^6/uL (3.93-5.22); RDW 12.6 % (11.7-14.6); WBC 5.34 10^3/uL (4.4-10.8)
[2023-02-11 13:01] LABS: Bilirubin, Direct 0.3 mg/dL (0.0-0.2); LDH 169 U/L (81-234)
== END 2023-02-11 09:04 | disposition home or self-care (01) ==
LOC: LBO 09:03
PROVIDERS: PCP Family Medicine; Visit Provider Family Medicine
DX: R17 Unspecified jaundice (principal)
CPT/HCPCS: 36415; 82248; 83615; 85025

== ENCOUNTER 2023-02-24 01:48 | Outpatient (CLI) | payer OTHER, SELFPAY ==
--- NOTE | 2023-02-24 06:38 | DI.MRI_ITS ---
Exam(s) MR BRAIN WO EXAM: MR BRAIN WO CLINICAL HISTORY: Increasing frequency of migraines,g43.109 TECHNIQUE: Multiplanar multisequence MRI of the brain was performed. COMPARISON: No exams were available for comparison FINDINGS: VENTRICLES AND EXTRA AXIAL SPACES: Normal in size and morphology for the patient's age. MIDLINE SHIFT: None. CEREBRAL PARENCHYMA: No focus of restricted diffusion to suggest acute infarct. No space-occupying le edis identified. HEMORRHAGE: None. BRAINSTEM/CEREBELLUM: Normal. VISUALIZED PARANASAL SINUSES/MASTOIDS:Clear. Vasculature: Normal flow void. PITUITARY GLAND: Unremarkable. ORBITS: Unremarkable. IMPRESSION: Unremarkable MRI of the brain. DATA REPOSITORY:
== END 2023-05-07 14:09 ==
LOC: DI 01:48
PROVIDERS: PCP Family Medicine; Visit Provider Family Medicine
DX: G43.109 Migraine with aura, not intractable, without status migrainosus (principal)
CPT/HCPCS: 70551

== ENCOUNTER 2023-07-28 15:40 | Outpatient (REF) | payer OTHER, SELFPAY | END 2023-07-28 15:41 | disposition home or self-care (01) | LOC: LBN 15:40 | PROVIDERS: PCP Family Medicine; Visit Provider Advanced Practice Midwife | DX: N89.8 Other specified noninflammatory disorders of vagina (principal); R35.0 Frequency of micturition | CPT/HCPCS: 87086; 87480; 87510; 87660 ==

== ENCOUNTER → 2023-10-22 04:08 | Outpatient (CLI) | payer OTHER, SELFPAY ==
--- NOTE | 2023-10-22 12:50 | DI.MRI_ITS ---
Exam(s) MR LOWER JOINT RT WO EXAM: MR LOWER JOINT RT WO CLINICAL HISTORY: Persistent rt knee pain, internal derangement,m23.91. TECHNIQUE: Multiplanar multisequence MRI was performed. COMPARISON: No exams were available for comparison FINDINGS: BONES: There is no fracture or contusion pattern. JOINTS: Small focus of high signal in the medial patellar facet. The articular cartilage is otherwis e unremarkable. There is a small amount of fluid in the joint space. TENDONS: Extensor mechanism: Unremarkable. Medial retinaculum: Unremarkable. Lateral retinaculum: Unremarkable. Popliteus: Unremarkable. MUSCLES: Unremarkable. MENISCI: The medial meniscus is unremarkable. The lateral meniscus is unremarkable. SOFT TISSUES: There is a very small popliteal cyst. LIGAMENTS: Anterior Cruciate: Unremarkable. Posterior Cruciate: Unremarkable. Medial Collateral:Unremarkable. Lateral Collateral: Unremarkable. OTHER: IMPRESSION: 1. There is no evidence of a meniscal or ligament tear. 2. Tiny cartilage injury in the medial patellar facet. 3. Small amount of fluid in the joint space. DATA REPOSITORY:
== END ==
PROVIDERS: PCP Family Medicine; Visit Provider Student in an Organized Health Care Education/Training Program
DX: M23.91 Unspecified internal derangement of right knee (principal)
CPT/HCPCS: 73721

== ENCOUNTER 2024-01-28 14:10 | Outpatient (CLI) | payer OTHER, SELFPAY ==
[2024-01-28 13:11] LABS: Abs Immature Grans 0.03 10^3/uL (0.0-0.06); Absolute Basophil Count 0.03 10^3/uL (0.0-0.2); Absolute Eosinophil Count 0.11 10^3/uL (0.0-0.7); Absolute Lymphocyte Count 1.56 10^3/uL (1.2-3.4); Absolute Monocyte Count 0.31 10^3/uL (0.1-0.8); Absolute Neutrophil Count 3.87 10^3/uL (1.2-6.7); Basophils % 0.5 %; Eosinophils % 1.9 %; HCT 40.7 % (36.0-46.0); HGB 13.8 g/dL (11.2-15.7); Immature Grans % 0.5 %; Lymphocytes % 26.4 %; MCH 30.1 pg (27.0-33.0); MCHC 33.9 % (32.0-36.0); MCV 89 fL (80-95); MPV 8.4 fL (8.0-11.0); Monocytes % 5.2 %; Neutrophils % 65.5 %; Platelet Count 232 10^3/uL (130-400); RBC 4.58 10^6/uL (3.93-5.22); RDW-SD 42.5 fL; WBC 5.91 10^3/uL (4.4-10.8)
[2024-01-28 13:46] LABS: ALT 20 U/L (14-59); AST 16 U/L (15-37); Alkaline Phosphatase 64 U/L (46-116); Anion Gap 8.3 mmol/L (3-11); BUN 21 mg/dL (7-18); Bilirubin, Total 1.73 mg/dL (0.2-1.0); CO2 26.7 mmol/L (21.0-32.0); CREATININE 1.3 mg/dL (0.55-1.02); Calcium 8.9 mg/dL (8.5-10.1); Chloride 106 mmol/L (98-107); Estimated GFR 54.31 (mL/min/1.73m2); Glucose 103 mg/dL (74-106); Potassium 4.1 mmol/L (3.5-5.1); Sodium 141 mmol/L (136-145); Total Protein 7.3 g/dL (6.4-8.2)
[2024-01-29 10:00] LABS: Lyme Ab w Rflx to Lyme Confirm Negative (Negative)
[2024-01-31 16:22] LABS: Anaplasma phagocytophilum Negative (Negative); B. miyamotoi PCR Negative (Negative); Babesia divergens/MO-1 Negative (Negative); Babesia duncani Negative (Negative); Babesia microti Negative (Negative); Ehrlichia chaffeensis Negative (Negative); Ehrlichia ewingii/canis Negative (Negative); Ehrlichia muris eauclairensis Negative (Negative)
== END 2024-01-28 14:11 | disposition home or self-care (01) ==
LOC: LBO 14:10
PROVIDERS: PCP Family Medicine; Visit Provider Nurse Practitioner
DX: R21 Rash and other nonspecific skin eruption (principal)
CPT/HCPCS: 36415; 80053; 87798; 85025; 86618

== ENCOUNTER 2024-03-30 16:42 | Outpatient (REF) | payer OTHER, SELFPAY | END 2024-03-30 16:43 | disposition home or self-care (01) | LOC: LBN 16:42 | PROVIDERS: PCP Family Medicine; Visit Provider Nurse Practitioner Family | DX: N76.0 Acute vaginitis (principal); R35.0 Frequency of micturition | CPT/HCPCS: 87086; 87480; 87510; 87660 ==

== ENCOUNTER 2024-04-23 14:01 | Outpatient (REF) | payer OTHER, SELFPAY | END 2024-04-23 14:02 | disposition home or self-care (01) | LOC: LBN 14:01 | PROVIDERS: PCP Family Medicine; Visit Provider Obstetrics & Gynecology Gynecology | DX: R35.0 Frequency of micturition (principal); R82.89 Other abnormal findings on cytological and histological examination of urine | CPT/HCPCS: 87086 ==

== ENCOUNTER 2025-02-03 08:16 | Outpatient (CLI) | payer OTHER, SELFPAY ==
--- NOTE | 2025-02-03 08:15 | RT.EKG_ITS ---
APPROVED REPORT Exam: Resting ECG Reason for Exam: Palpitations Patient Location: O HR:61 bpm ECG Measurements Heart Rate 61 AXIS OK 145 P 58 QRSd 87 QRS 80 QT 423 T 72 QTc 426 Conclusion Sinus rhythm...normal P axis, V-rate 50- 99 ST elev, probable normal early repol pattern...ST elevation, age<55 Normal Electrocardiogram
== END 2025-02-03 08:17 | disposition home or self-care (01) ==
LOC: DI.KIM 08:17
PROVIDERS: PCP Family Medicine; Visit Provider Family Medicine
DX: R00.2 Palpitations (principal)
CPT/HCPCS: 93010

== ENCOUNTER 2025-02-03 09:30 | Outpatient (RCR) | payer OTHER, SELFPAY ==
--- NOTE | 2025-02-08 09:23 | W.HOLTRPT ---
Date of service: 02/08/25 Time of Service: 09:23 Holter Monitor Report Referring Provider:: Blaine Kohler Indications:: Palpitations Holter Monitor Note: This is a Holter monitor ordered for palpitations Rhythm throughout was sinus with an average heart rate of 79. Minimum was 51, maximum 143. There were very rare isolated atrial and ventricular ectopic beats. There was no atrial fibrillation, no high-grade AV block, no pauses greater than 3 seconds. Multiple symptoms were reported all of which correlated to sinus rhythm, no associated dysrhythmia
== END 2025-02-17 23:59 | disposition home or self-care (01) ==
LOC: CARDOPNVT 09:30
PROVIDERS: PCP Family Medicine; Visit Provider Internal Medicine Cardiovascular Disease
DX: R00.2 Palpitations (principal)
CPT/HCPCS: 93227; 93225; 93226

== ENCOUNTER 2025-02-07 13:04 | Outpatient (CLI) | payer OTHER, SELFPAY ==
[2025-02-07 08:44] LABS: Abs Immature Grans 0.03 10^3/uL (0.0-0.06); HCT 40.7 % (36.0-46.0); HGB 13.8 g/dL (11.2-15.7); Immature Grans % 0.6 %; MCH 30.2 pg (27.0-33.0); MCHC 33.9 % (32.0-36.0); MCV 89 fL (80-95); MPV 8.9 fL (8.0-11.0); Platelet Count 211 10^3/uL (130-400); RBC 4.57 10^6/uL (3.93-5.22); RDW 12.5 % (11.7-14.6); RDW-SD 41.0 fL; WBC 5.28 10^3/uL (4.4-10.8)
[2025-02-07 08:57] LABS: ESR < 1 mm/hr (0-20)
[2025-02-07 09:46] LABS: ALT 37 U/L (14-59); AST 18 U/L (15-37); Albumin 3.9 g/dL (3.4-5.0); Alkaline Phosphatase 65 U/L (46-116); Anion Gap 6.7 mmol/L (3-11); BUN 24 mg/dL (7-18); Bilirubin, Total 2.5 mg/dL (0.2-1.0); CO2 27.3 mmol/L (21.0-32.0); Calcium 8.8 mg/dL (8.5-10.1); Chloride 104 mmol/L (98-107); Estimated GFR 113.46 (mL/min/1.73m2); Glucose 87 mg/dL (74-106); Magnesium 2.1 mg/dL (1.8-2.4); Potassium 4.2 mmol/L (3.5-5.1); Sodium 138 mmol/L (136-145); TSH (W/Ref FT4) 2.68 uIU/mL (0.36-3.74); Total Protein 6.9 g/dL (6.4-8.2)
[2025-02-07 09:50] LABS: C-Reactive Protein < 0.50 mg/dL (<or=0.5)
[2025-02-08 11:07] LABS: Lyme Ab w Rflx to Lyme Confirm Positive (Negative)
[2025-02-08 12:06] LABS: Lyme IgG Ab Negative (Negative)
[2025-02-09 23:18] LABS: B. miyamotoi PCR Negative (Negative); Babesia divergens/MO-1 Negative (Negative); Ehrlichia muris eauclairensis Negative (Negative)
== END 2025-02-07 13:05 | disposition home or self-care (01) ==
LOC: LBO 13:05
PROVIDERS: PCP Family Medicine; Visit Provider Family Medicine
DX: R00.2 Palpitations (principal); R61 Generalized hyperhidrosis
CPT/HCPCS: 36415; 80053; 85652; 86617; 87798; 83735; 84443; 85025; 86140; 86618